=== PATIENT | female | born 1970 | race Asian ===

== ENCOUNTER 2018-10-01 00:41 | Emergency (ER) | payer OTHER ==
--- OUTSIDE RECORDS SUMMARY | 2018-10-01 00:44 | XMS REPORT ---
:1970 Author Organization eClinicalWorks Care Team Providers Name Role Phone Whitaker, Na Provider Role Unavailable Allergies No Known Allergies Problems Problem Type Condition Code Onset Dates Condition Status Problem Acute pain of right knee M25.561 Active Problem Hydronephrosis N13.30 Active Problem Cyst of skin L72.9 Active Problem Microscopic hematuria R31.2 Active Problem Fatigue, unspecified type R53.83 Active Problem Family history of diabetes mellitus Z83.3 Active Problem Blood tests for routine general Z00.00 Active physical examination Problem Osteoarthritis of knee, unspecified M17.10 Active laterality, unspecified osteoarthritis type Problem Low vitamin D level E55.9 Active Problem Cold intolerance R68.89 Active Problem Calculus of kidney and ureter N20.2 Active Medications No Known Medications Results No Known Results Summary Purpose eClinicalWorks Submission
--- OUTSIDE RECORDS SUMMARY | 2018-10-01 00:44 | XMS REPORT ---
:1970 Author Organization [employer]ClinicalWorks Care Team Providers Name Role Phone Daniel Butler Provider Role Unavailable Allergies, Adverse Reactions, Alerts Substance Reaction Event Type N.K.D.A. Info Not Available Non Drug Allergy Problems Problem Type Condition Code Onset Dates Condition Status Problem Cyst of skin L72.9 Active Problem Low vitamin D level E55.9 Active Problem Hydronephrosis N13.30 Active Problem Fatigue, unspecified type R53.83 Active Problem Family history of diabetes Z83.3 Active mellitus Problem Primary osteoarthritis of right M17.11 Active knee Problem Calculus of kidney and ureter N20.2 Active Problem Osteoarthritis of knee, M17.10 Active unspecified laterality, unspecified osteoarthritis type Problem Cold intolerance R68.89 Active Problem Blood tests for routine general Z00.00 Active physical examination Assessment Primary osteoarthritis of right M17.11 Active knee Assessment Tear of medial meniscus of right S83.241A Active knee, current, unspecified tear type, initial encounter Problem Microscopic hematuria R31.2 Active Assessment Acute pain of right knee M25.561 Active Problem Acute pain of right knee M25.561 Active Medications No Known Medications Results No Known Results Summary Purpose eClinicalWorks Submission
--- OUTSIDE RECORDS SUMMARY | 2018-10-01 00:44 | XMS REPORT ---
:1970 Author Organization [employer]Works Care Team Providers Name Role Phone Whitaker, Maryjane Provider Role Unavailable Allergies, Adverse Reactions, Alerts Substance Reaction Event Type N.K.D.A. Info Not Available Non Drug Allergy Problems Problem Type Condition Code Onset Dates Condition Status Problem Acute pain of right knee M25.561 Active Problem Hydronephrosis N13.30 Active Problem Cyst of skin L72.9 Active Problem Fatigue, unspecified type R53.83 Active Problem Family history of diabetes mellitus Z83.3 Active Problem Blood tests for routine general Z00.00 Active physical examination Problem Osteoarthritis of knee, unspecified M17.10 Active laterality, unspecified osteoarthritis type Problem Low vitamin D level E55.9 Active Problem Cold intolerance R68.89 Active Problem Calculus of kidney and ureter N20.2 Active Assessment Osteoarthritis of knee, unspecified M17.10 Active laterality, unspecified osteoarthritis type Assessment Low vitamin D level E55.9 Active Assessment Acute pain of right knee M25.561 Active Problem Microscopic hematuria R31.2 Active Medications Medication Code Code Instructions Start End Status Dosage System Date Date Meclizine HCl [facility] 25436132764 25 MG Orally Active 1 tablet as three times a needed day Cipro [facility] 42477280279 500 MG Orally Active 1 tablet every 12 hrs Pennsaid [facility] 86320478444 2 % Transdermal December 05January Active 2 applications Twice a day 2017, to affected 2018 area Flomax [facility] 35411483145 0.4 MG Orally Active 1 capsule Once a day Ondansetron ND 43049055321 4 MG Orally Active 1 tablet HCl three times a day Zyrtec Allergy [facility] 37968564461 10 MG Orally Active 1 tablet Once a day Results No Known Results Summary Purpose eClinicalWorks Submission
--- OUTSIDE RECORDS SUMMARY | 2018-10-01 00:44 | XMS REPORT ---
:1970 Author Organization eClinicalWorks Care Team Providers Name Role Phone WhitakerMaryjane Provider Role Unavailable Allergies, Adverse Reactions, Alerts [...] of kidney and ureter N20.2 Active Assessment Blood tests for routine general Z00.00 Active physical examination Assessment Fatigue, unspecified type R53.83 Active Assessment Osteoarthritis of knee, unspecified M17.10 Active laterality, unspecified osteoarthritis type Assessment Low vitamin D level E55.9 Active Assessment Cold intolerance R68.89 Active Assessment Acute pain of right knee M25.561 Active Assessment Family history of diabetes mellitus Z83.3 Active Problem Microscopic hematuria R31.2 Active Medications Medication Code Code Instructions Start End Status Dosage System Date Date Pennsaid [facility] 53749816529 2 % Transdermal Active 2 applications Twice a day to affected area Cipro [facility] 85744981020 500 MG Orally Active 1 tablet every 12 hrs Zyrtec Allergy [facility] 00028266598 10 MG Orally Active 1 tablet Once a day Meclizine HCl [facility] 28138891202 25 MG Orally Active 1 tablet as three times a needed day Flomax [facility] 84721412313 0.4 MG Orally Active 1 capsule Once a day Ondansetron [facility] 67798111455 4 MG Orally Active 1 tablet HCl three times a day Results No Known Results Summary Purpose eClinicalWorks Submission
--- OUTSIDE RECORDS SUMMARY | 2018-10-01 00:45 | XMS REPORT ---
:1970 Author Organization eClinicalWorks Care Team Providers Name Role Phone Luke Daniel Provider Role Unavailable Allergies No Known Allergies Problems Problem Type Condition Code Onset Dates Condition Status Problem Cyst of skin L72.9 Active Problem Low vitamin D level E55.9 Active Problem Hydronephrosis N13.30 Active Problem Microscopic hematuria R31.2 Active Problem Acute pain of right knee M25.561 Active Problem Fatigue, unspecified type R53.83 Active Problem Family history of diabetes mellitus Z83.3 Active Problem Primary osteoarthritis of right M17.11 Active knee Problem Calculus of kidney and ureter N20.2 Active Problem Osteoarthritis of knee, unspecified M17.10 Active laterality, unspecified osteoarthritis type Problem Cold intolerance R68.89 Active Problem Blood tests for routine general Z00.00 Active physical examination Medications No Known Medications Results No Known Results Summary Purpose eClinicalWorks Submission
--- OUTSIDE RECORDS SUMMARY | 2018-10-01 00:45 | XMS REPORT ---
[...] routine general Z00.00 Active physical examination Assessment Acute pain of right knee M25.561 Active Problem Microscopic hematuria R31.2 Active Assessment Primary osteoarthritis of right M17.11 Active knee Problem Acute pain of right knee M25.561 Active Medications No Known Medications Results No Known Results Summary Purpose eClinicalWorks Submission
[2018-10-01] MEDS ORDERED: FENTANYL CITR 100 MCG/2 ML ONE (01:16)
[2018-10-01] MEDS ORDERED: PROMETHAZINE 25 MG/ML VIAL ONE (01:23)
[2018-10-01 01:29] LABS: Absolute Lymphocytes (CBC) 2.6 K/uL (0.7-4.9); Absolute Monocytes 0.6 K/uL (0.1-1.3); Absolute Neutrophil 4.9 K/uL (1.8-8.0); Basophils % 0.6 % (0-1.3); Eosinophils % 1.8 % (0-4.4); Hematocrit 39.2 % (36.0-45.0); Lymphocytes % 31.2 % (15.3-44.8); MPV 7.3 fL (7.6-11.3); RBC Red Blood Cell Count 4.65 M/uL (3.86-4.86)
[2018-10-01] MEDS ORDERED: SIMETHICONE 80 MG TAB ONE ×2 (01:34→02:05)
[2018-10-01 01:37] LABS: Urine Blood TRACE (NEG); Urine Glucose NEGATIVE (NEG); Urine Protein NEGATIVE (NEG); Urine Specific Gravity 1.015 (1.005-1.030)
[2018-10-01 01:58] LABS: ALT/SGPT 138 U/L (12-78); AST/SGOT 63 U/L (15-37); Albumin 3.7 g/dL (3.4-5.0); Alkaline Phosphatase 122 U/L (45-117); BUN Blood Urea Nitrogen 13 mg/dL (7-18); Bicarbonate 26 mmol/L (21-32); Bilirubin Direct 0.2 mg/dL (0-0.2); Bilirubin Total 0.7 mg/dL (0.2-1.0); Glucose Level 133 mg/dL (74-106); Lipase 152 U/L (73-393); Protein, Total 7.7 g/dL (6.4-8.2); Sodium Level 140 mmol/L (136-145)
[2018-10-01 02:37] LABS: Urine Amorphous Sediment 1+ /HPF (NONE SEEN); Urine Bacteria <20 /HPF (<20); Urine Culture Reflex Order NOT NEEDED; Urine RBC NONE SEEN /HPF (NONE SEEN)
--- NOTE | 2018-10-01 04:43 | ER ---
Nurse's Notes [facility] Name: Nidhi Solorzano Age: 48 yrs Sex: Female : 1970 Arrival Date: 10/01/2018 Time: 00:46 Bed 6 Private MD: Maryjane Whitaker Diagnosis: Upper abdominal pain, unspecified Presentation: 10/01 00:58 Presenting complaint: Patient states: she has been having intermittent abdominal pain x bb 2 days but tonight the pain got much worse denies vomiting, diarrhea, fever. Transition of care: patient was not received from another setting of care. Onset of symptoms was September 28, 2018. Risk Assessment: Do you want to hurt yourself or someone else? Patient reports no desire to harm self or others. Initial Sepsis Screen: Does the patient meet any 2 criteria? No. Patient's initial sepsis screen is negative. Does the patient have a suspected source of infection? No. Patient's initial sepsis screen is negative. Care prior to arrival: None. 00:58 Method Of Arrival: Ambulatory bb 00:58 Acuity: ESTEFANIA 3 bb Triage Assessment: 01:24 General: Appears uncomfortable, Behavior is calm, cooperative. Pain: Complains of pain ak1 in abdomen. EENT: No signs and/or symptoms were reported regarding the EENT system. Neuro: No deficits noted. Cardiovascular: No deficits noted. Respiratory: No deficits noted. GI: Abdomen is flat, Bowel sounds present X 4 quads. : No signs and/or symptoms were reported regarding the genitourinary system. Derm: No signs and/or symptoms reported regarding the dermatologic system. Musculoskeletal: No signs and/or symptoms reported regarding the musculoskeletal system. 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 - Social history:: Smoking status: Patient/guardian denies using tobacco, Patient/guardian denies using alcohol. - Ebola Screening: : No symptoms or risks identified at this time. Screenin:22 Abuse screen: Denies threats or abuse. Denies injuries from another. Nutritional ak1 screening: No deficits noted. Tuberculosis screening: No symptoms or risk factors identified. Fall Risk None identified. Assessment: 01:28 GI: Abd is soft Abdomen is tender to palpation X 4 quads. ak1 01:50 Reassessment: pt finished oral contrast, Valerie with CT notified. ak1 Vital Signs: 01:00 BP 139 / 87; Pulse 119; Resp 18 S; Temp 98.4(O); Pulse Ox 98% on R/A; Weight 52.16 kg bb (R); Height 4 ft. 11 in. (149.86 cm) (R); Pain 10/10; 02:11 BP 142 / 87; Pulse 114; Resp 18; Pulse Ox 100% on R/A; ak1 03:12 BP 136 / 91; Pulse 109; Resp 18; Pulse Ox 100% on R/A; ak1 01:00 Body Mass Index 23.23 (52.16 kg, 149.86 cm) bb ED Course: 00:46 Patient arrived in ED. es 00:46 Maryjane Whitaker MD is Private Physician. es 00:51 Gasper Cardenas MD is Attending Physician. rn 00:54 Chelsea Mina FNP-C is PHCP. snw 00:59 Jessica Kumar, RN is Primary Nurse. ak1 01:00 Triage completed. bb 01:00 Arm band placed on Patient placed in an exam room, on a stretcher, on pulse oximetry. bb Family accompanied patient. 01:12 Inserted saline lock: 20 gauge in right forearm, using aseptic technique. Blood ak1 collected. 01:22 Patient has correct armband on for positive identification. Bed in low position. Call ak1 light in reach. Side rails up X 1. Adult w/ patient. Pulse ox on. NIBP on. 03:[address] via wheelchair. kw1 03:38 CT Abd/Pelvis - W/Contrast In Process Unspecified. EDMS 03:38 CT completed. Patient tolerated procedure well. Patient moved back from CT. kw1 04:43 Blu Spencer MD is Referral Physician. rn 05:03 IV discontinued, intact, bleeding controlled, No redness/swelling at site. Pressure ak1 dressing applied. 05:03 No provider procedures requiring assistance completed. ak1 Administered Medications: 01:08 CANCELLED (other intervention used): Simethicone 120 mg PO once snw 01:17 Drug: NS 0.9% 1000 ml Route: IV; Rate: 1 bolus; Site: right forearm; ea 01:56 Follow up: IV Status: Completed infusion; IV Intake: 1000ml ak1 01:17 Drug: Phenergan 12.5 mg Route: IVP; Site: right forearm; ea 01:33 Follow up: Response: No adverse reaction ak1 01:21 Drug: fentaNYL (PF) 25 mcg Route: IVP; Site: right forearm; ak1 01:33 Follow up: Response: No adverse reaction ak1 01:53 Drug: Simethicone 80 mg Route: PO; ak1 02:10 Follow up: Response: No adverse reaction ak1 02:10 Drug: Simethicone 80 mg Route: PO; ak1 02:11 Follow up: Response: No adverse reaction ak1 05:02 Drug: GI Cocktail without - (Maalox Suspension 30 ml, Lidocaine Liquid 2 % 15 ak1 ml) Route: PO; 05:02 Follow up: Response: No adverse reaction ak1 Intake: 01:56 IV: 1000ml; Total: 1000ml. ak1 Outcome: 04:43 Discharge ordered by . rn 05:04 Discharged to home ambulatory, with family. ak1 05:04 Condition: good 05:04 Discharge instructions given to patient, family, Instructed on discharge instructions, follow up and referral plans. no drinking with medication, no driving heavy equipment, medication usage, Demonstrated understanding of instructions, follow-up care, medications, Prescriptions given X 2. 05:04 Patient left the ED. ak1 Signatures: Dispatcher [employer] EDChelsea Serna, SUPERVISOR VACUUM METALIZING-C SUPERVISOR VACUUM METALIZING-Csnw Za Felder Brenda RN RN Gasper Rios MD MD rn Krenek, Amber, RN RN ak1 Latisha Sainz RN RN ea Wilhelm, Kimberly kw
--- NOTE | 2018-10-01 04:44 | EDPHYS ---
Physician Documentation [facility] Name: Nidhi Solorzano Age: 48 yrs Sex: Female : 1970 Arrival Date: 10/01/2018 Time: 00:46 Bed 6 Private MD: Maryjane Whitaker ED Physician Gasper Cardenas HPI: 10/01 00:58 This 48 yrs old Female presents to ER via Unassigned with complaints of Abdominal snw Pain. 00:58 The patient presents with abdominal pain that is diffuse, abdominal distention that is snw diffuse. Onset: The symptoms/episode began/occurred gradually, 4 day(s) ago, and became worse today, and became persistent. The symptoms do not radiate. The symptoms are described as shooting, steady. Modifying factors: The symptoms are alleviated by nothing, the symptoms are aggravated by lying down. Severity of pain: At its worst the pain was moderate severe. The patient has not experienced similar symptoms in the past. The patient has not recently seen a physician. 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 - Social history:: Smoking status: Patient/guardian denies using tobacco, Patient/guardian denies using alcohol. - Ebola Screening: : No symptoms or risks identified at this time. ROS: 00:55 Constitutional: Negative for fever, chills, and weight loss, Eyes: Negative for injury, snw pain, redness, and discharge, ENT: Negative for injury, pain, and discharge, Neck: Negative for injury, pain, and swelling, Cardiovascular: Negative for chest pain, palpitations, and edema. 00:55 Back: Negative for injury and pain, : Negative for injury, bleeding, discharge, and swelling, MS/Extremity: Negative for injury and deformity, Skin: Negative for injury, rash, and discoloration, Neuro: Negative for headache, weakness, numbness, tingling, and seizure. 00:55 Respiratory: Positive for shortness of breath, at rest. 00:55 Abdomen/GI: Positive for abdominal pain, abdominal cramps, abdominal distension, anorexia. Exam: 00:54 Back: No spinal tenderness. No costovertebral tenderness. Full range of motion. snw Skin: Warm, dry with normal turgor. Normal color with no rashes, no lesions, and no evidence of cellulitis. MS/ Extremity: Pulses equal, no cyanosis. Neurovascular intact. Full, normal range of motion. Neuro: Awake and alert, GCS 15, oriented to person, place, time, and situation. Cranial nerves II-XII grossly intact. Motor strength 5/5 in all extremities. Sensory grossly intact. Cerebellar exam normal. Normal gait. 00:54 Head/Face: Normocephalic, atraumatic. Eyes: Pupils equal round and reactive to light, extra-ocular motions intact. Lids and lashes normal. Conjunctiva and sclera are non-icteric and not injected. Cornea within normal limits. Periorbital areas with no swelling, redness, or edema. ENT: Nares patent. No nasal discharge, no septal abnormalities noted. Tympanic membranes are normal and external auditory canals are clear. Oropharynx with no redness, swelling, or masses, exudates, or evidence of obstruction, uvula midline. Mucous membranes moist. Neck: Trachea midline, no thyromegaly or masses palpated, and no cervical lymphadenopathy. Supple, full range of motion without nuchal rigidity, or vertebral point tenderness. No Meningismus. Chest/axilla: Normal chest wall appearance and motion. Nontender with no deformity. No lesions are appreciated. Cardiovascular: Tachycardic rate and rhythm with a normal S1 and S2. No gallops, murmurs, or rubs. Normal PMI, no JVD. No pulse deficits. Respiratory: Lungs have equal breath sounds bilaterally, clear to auscultation and percussion. No rales, rhonchi or wheezes noted. No increased work of breathing, no retractions or nasal flaring. 00:54 Constitutional: The patient appears alert, anxious. 00:54 Abdomen/GI: Inspection: distension, Bowel sounds: normal, Palpation: mild abdominal tenderness, in all quadrants. Vital Signs: 01:00 BP 139 / 87; Pulse 119; Resp 18 S; Temp 98.4(O); Pulse Ox 98% on R/A; Weight 52.16 kg bb (R); Height 4 ft. 11 in. (149.86 cm) (R); Pain 10/10; 02:11 BP 142 / 87; Pulse 114; Resp 18; Pulse Ox 100% on R/A; ak1 03:12 BP 136 / 91; Pulse 109; Resp 18; Pulse Ox 100% on R/A; ak1 01:00 Body Mass Index 23.23 (52.16 kg, 149.86 cm) bb MDM: 00:51 Patient medically screened. rn 10/01 00:58 Order name: Basic Metabolic Panel; Complete Time: 02:00 snw 10/01 00:58 Order name: CBC with Diff; Complete Time: 01:39 snw 10/01 00:58 Order name: Hepatic Function; Complete Time: 02:00 snw 10/01 00:58 Order name: Lipase; Complete Time: 02:00 snw 10/01 00:58 Order name: DD; Complete Time: 01:47 snw 10/01 01:27 Order name: Urine Culture snw 10/01 00:58 Order name: CT Abd/Pelvis - W/Contrast; Complete Time: 15:46 snw 10/01 01:27 Order name: Urine Microscopic Only; Complete Time: 02:46 snw 10/01 01:29 Order name: Urine Dipstick--Ancillary (enter results); Complete Time: 01:39 ar5 10/01 00:58 Order name: IV Saline Lock; Complete Time: 01:12 snw 10/01 00:58 Order name: Labs collected and sent; Complete Time: 01:12 snw 10/01 00:58 Order name: NPO; Complete Time: 01:12 snw 10/01 01:27 Order name: Urine Dipstick-Ancillary (obtain specimen); Complete Time: 01:30 snw Administered Medications: 01:08 CANCELLED (other intervention used): Simethicone 120 mg PO once snw 01:17 Drug: NS 0.9% 1000 ml Route: IV; Rate: 1 bolus; Site: right forearm; ea 01:56 Follow up: IV Status: Completed infusion; IV Intake: 1000ml ak1 01:17 Drug: Phenergan 12.5 mg Route: IVP; Site: right forearm; ea 01:33 Follow up: Response: No adverse reaction ak1 01:21 Drug: fentaNYL (PF) 25 mcg Route: IVP; Site: right forearm; ak1 01:33 Follow up: Response: No adverse reaction ak1 01:53 Drug: Simethicone 80 mg Route: PO; ak1 02:10 Follow up: Response: No adverse reaction ak1 02:10 Drug: Simethicone 80 mg Route: PO; ak1 02:11 Follow up: Response: No adverse reaction ak1 05:02 Drug: GI Cocktail without - (Maalox Suspension 30 ml, Lidocaine Liquid 2 % 15 ak1 ml) Route: PO; 05:02 Follow up: Response: No adverse reaction ak1 Disposition: 04:42 Co-signature as Attending Physician, Gasper Cardenas MD. rn Disposition: 10/01/18 04:43 Discharged to Home. Impression: Upper abdominal pain, unspecified. - Condition is Stable. - Discharge Instructions: Abdominal Pain, Adult. - Prescriptions for Tylenol- Codeine #3 300-30 mg Oral Tablet - take 1 tablet by ORAL route every 6 hours As needed; 20 tablet. Zantac 300 mg Oral Tablet - take 1 tablet by ORAL route At bedtime; 30 tablet. - Medication Reconciliation Form, Thank You Letter, Antibiotic Education, Prescription Opioid Use form. - Follow up: Blu Spencer MD; When: As needed; Reason: Recheck today's complaints, Re-evaluation by your physician. - Problem is new. - Symptoms have improved. Signatures: Dispatcher [employer] EDMS Chelsea Mina, REAL-C COAL DRIER OPERATOR-Csnw Heidi Jaffe RN RN bb Nieto, Roman, MD MD rn Krenek, Amber, RN RN ak1 Latisha Sainz RN RN ea Corrections: (The following items were deleted from the chart) 00:59 00:54 Head/Face: Normocephalic, atraumatic. Eyes: Pupils equal round and reactive to snw light, extra-ocular motions intact. Lids and lashes normal. Conjunctiva and sclera are non-icteric and not injected. Cornea within normal limits. Periorbital areas with no swelling, redness, or edema. ENT: Nares patent. No nasal discharge, no septal abnormalities noted. Tympanic membranes are normal and external auditory canals are clear. Oropharynx with no redness, swelling, or masses, exudates, or evidence of obstruction, uvula midline. Mucous membranes moist. Neck: Trachea midline, no thyromegaly or masses palpated, and no cervical lymphadenopathy. Supple, full range of motion without nuchal rigidity, or vertebral point tenderness. No Meningismus. Chest/axilla: Normal chest wall appearance and motion. Nontender with no deformity. No lesions are appreciated. Cardiovascular: Regular rate and rhythm with a normal S1 and S2. No gallops, murmurs, or rubs. Normal PMI, no JVD. No pulse deficits. Respiratory: Lungs have equal breath sounds bilaterally, clear to auscultation and percussion. No rales, rhonchi or wheezes noted. No increased work of breathing, no retractions or nasal flaring. snw 01:08 00:58 Simethicone 120 mg PO once ordered. snw snw :08 01:08 Simethicone 120 mg PO once ordered. snw snw 05:04 04:43 10/01/2018 04:43 Discharged to Home. Impression: Upper abdominal pain, ak1 unspecified. Condition is Stable. Forms are Medication Reconciliation Form, Thank You Letter, Antibiotic Education, Prescription Opioid Use. Follow up: Blu pSencer; When: As needed; Reason: Recheck today's complaints, Re-evaluation by your physician. Problem is new. Symptoms have improved. rn
[2018-10-01] MEDS ORDERED: LIDOCAINE VISCOUS 2% SOLN 15 ML UDC ONE (05:05)
[2018-10-01] MEDS ORDERED: MAGNE/ALUM HYDROXD 30 ML UCUP ONE (05:05)
--- NOTE | 2018-10-01 12:06 | RAD REPORT ---
EXAM DESCRIPTION: CT abdomen pelvis with IV contrast CLINICAL HISTORY: 48-year-old female with intermittent abdominal pain x2 days without vomiting, diar joseline or fever TECHNIQUE: Axial CT imaging of the abdomen and pelvis was performed following the administration of intravenous contrast.. Sagittal and coronal reconstructed images were then performed. The CT stud y is performed according to ALARA (as low as reasonably achievable) or ALARA/IMAGE GENTLY, with autom atic adjustment of mA and/or kV according to patient size. Performed on: 10/01/2018 at 3:30 AM. COMPARISON: CT abdomen and pelvis performed on 07/16/2016 FINDINGS: Lung bases: The lung bases are clear. There are bilateral breast prostheses. Liver: The liver is normal in size and configuration. There is a stable 1.2 cm cyst in the posterior right hepatic lobe. Liver attenuation is otherwise within normal limits. The hepatic and portal veins are patent. Spleen: The spleen is normal is size, configuration and attenuation. Gallbladder and bile duct: The gallbladder is well distended and unremarkable. There is no biliary ductal dilatation. Pancreas: The pancreas is grossly normal in size and configuration. Adrenal Glands: The adrenal glands are normal in size and configuration. Kidneys: The kidneys are normal in size and configuration. There is no evidence of hydronephrosis. Th ere are punctate bilateral nonobstructing renal calculi. No definite solid or cystic renal mass lesio ns are identified. Stomach: The stomach is grossly normal. There is no definite hiatal hernia. Bowel: The bowel gas pattern is non specific and non obstructive. Appendix: The appendix is normal. Free air: There is no evidence of free air. Free fluid: There is no evidence of free fluid. Vasculature: The aorta is normal in caliber and contour. The inferior vena cava is grossly unremarkab le. Lymphadenopathy: No pathologic lymphadenopathy is identified. Bladder: The bladder is incompletely distended and smooth in contour. Reproductive: The uterus is retroverted and is otherwise unremarkable. Bones: No acute osseous abnormalities are identified. Soft tissues: No focal soft tissue abnormalities are identified. IMPRESSION: 1. No evidence of acute intra-abdominal or intrapelvic pathology. 2. Punctate bilateral nonobstructing renal calculi. 3. Stable small right hepatic lobe cyst. 4. Retroverted uterus. Electronically signed by: Brenda García DO 10/01/2018 4:25 AM SOCIAL MEDIA DEVELOPER Due to temporary technical issues with the PACS/Fluency reporting system, reports are being signed by the in house radiologist as a courtesy to ensure prompt reporting. The interpreting radiologist is f ully responsible for the content of the report.
== END 2018-10-01 05:04 | disposition home or self-care (01) ==
LOC: ER 00:41
DX: R10.10 Upper abdominal pain, unspecified (principal); Z98.82 Breast implant status
CPT/HCPCS: 36415; 74177; 80048; 80076; 81003; 81015; 83690; 85025; 85379; 87086; 87088; 96361; 96374; 96375; 99284; J2550; J3010; Q9967

== ENCOUNTER 2019-01-21 11:10 | Emergency (ER) | payer OTHER ==
--- OUTSIDE RECORDS SUMMARY | 2019-01-21 11:12 | XMS REPORT ---
[...] End Status Dosage System Date Date Pennsaid [facility] 13671391434 2 % Transdermal Active 2 applications Twice a day to affected area Cipro [facility] 00930868879 500 MG Orally Active 1 tablet every [address] [facility] 62698741149 10 MG Orally Active 1 tablet Once a day Meclizine HCl [facility] 87008216372 25 MG Orally Active 1 tablet as three times a needed day Flomax [facility] 08309984427 0.4 MG Orally Active 1 capsule Once a day Ondansetron [facility] 50220372137 4 MG Orally Active 1 tablet HCl three times a day Results No Known Results Summary Purpose eClinicalWorks Submission
--- OUTSIDE RECORDS SUMMARY | 2019-01-21 11:12 | XMS REPORT ---
:1970 [facility] On license of [facility] [address] Lovell [address] [place] [id number] Care Team Providers Name Role Phone Unavailable Unavailable Unavailable Problems This patient has no known problems. Allergies, Adverse Reactions, Alerts This patient has no known allergies or adverse reactions. Medications This patient has no known medications.
--- OUTSIDE RECORDS SUMMARY | 2019-01-21 11:12 | XMS REPORT ---
[...] Status Dosage System Date Date Meclizine HCl [facility] 98141609168 25 MG Orally Active 1 tablet as three times a needed day Cipro [facility] 05909838329 500 MG Orally Active 1 tablet every 12 hrs Pennsaid [facility] 00269619043 2 % Transdermal December 05January Active 2 applications Twice a day 2017, to affected 2018 area Flomax [facility] 50949841752 0.4 MG Orally Active 1 capsule Once a day Ondansetron ND 58699865624 4 MG Orally Active 1 tablet HCl three times a day Zyrtec Allergy [facility] 98070456814 10 MG Orally Active 1 tablet Once a day Results No Known Results Summary Purpose eClinicalWorks Submission
--- OUTSIDE RECORDS SUMMARY | 2019-01-21 11:13 | XMS REPORT ---
:1970 Author Organization eClinicalWorks Care Team Providers Name Role Phone Whitaker, Na Provider Role Unavailable Allergies No Known Allergies Problems Problem Type Condition Code Onset Dates Condition Status Problem Blood tests for routine general Z00.00 Active physical examination Problem Primary osteoarthritis of right M17.11 Active knee Problem Fatigue, unspecified type R53.83 Active Problem Carpal tunnel syndrome of right G56.01 Active wrist Problem Hyperthyroidism E05.90 Active Problem Carpal tunnel syndrome of left G56.02 Active wrist Problem Renal calculus N20.0 Active Problem Gastroesophageal reflux disease K21.9 Active without esophagitis Problem Thyroiditis E06.9 Active Problem Chronic fatigue R53.82 Active Problem Low vitamin D level E55.9 Active Problem Microscopic hematuria R31.2 Active Problem Hydronephrosis N13.30 Active Problem Osteoarthritis of knee, unspecified M17.10 Active laterality, unspecified osteoarthritis type Problem Calculus of kidney and ureter N20.2 Active Problem Acute pain of right knee M25.561 Active Problem Cold intolerance R68.89 Active Problem Cyst of skin L72.9 Active Problem Family history of diabetes mellitus Z83.3 Active Medications No Known Medications Results No Known Results Summary Purpose eClinicalWorks Submission
--- OUTSIDE RECORDS SUMMARY | 2019-01-21 11:13 | XMS REPORT ---
:1970 Author Organization eClinicalWorks Care Team Providers Name Role Phone Whitaker, Maryjane Provider Role Unavailable Allergies, Adverse Reactions, Alerts Substance Reaction Event Type N.K.D.A. Info Not Available Non Drug Allergy Problems Problem Type Condition Code Onset Dates Condition Status Problem Hydronephrosis N13.30 Active Problem Family history of diabetes mellitus Z83.3 Active Problem Low vitamin D level E55.9 Active Problem Chronic fatigue R53.82 Active Assessment Epigastric abdominal pain R10.13 Active Problem Gastroesophageal reflux disease K21.9 Active without esophagitis Assessment Gastroesophageal reflux disease K21.9 Active without esophagitis Assessment Chronic fatigue R53.82 Active Problem Renal calculus N20.0 Active Problem Cold intolerance R68.89 Active Problem Blood tests for routine general Z00.00 Active physical examination Problem Primary osteoarthritis of right M17.11 Active knee Problem Fatigue, unspecified type R53.83 Active Assessment Chest pain, unspecified type R07.9 Active Assessment Tachycardia with heart rate 121-140 R00.0 Active beats per minute Assessment Dyspnea, unspecified type R06.00 Active Assessment Renal calculus N20.0 Active Problem Calculus of kidney and ureter N20.2 Active Problem Microscopic hematuria R31.2 Active Assessment Low TSH level R79.89 Active Problem Acute pain of right knee M25.561 Active Assessment Elevated liver enzymes R74.8 Active Problem Osteoarthritis of knee, unspecified M17.10 Active laterality, unspecified osteoarthritis type Problem Cyst of skin L72.9 Active Medications No Known Medications Results Name Result Date Reference Range Unit Abnormality Flag TSH Thyroid Stimulating Hormone ----Thyroid Stimulating <0.005 20181002 0.360-3.740 [iU]/L L Hormone Summary Purpose eClinicalWorks Submission
--- OUTSIDE RECORDS SUMMARY | 2019-01-21 11:13 | XMS REPORT ---
:1970 Author Organization eClinicalWorks Care Team Providers Name Role Phone Whitaker, Na Provider Role Unavailable Allergies No Known Allergies Problems Problem Type Condition Code Onset Dates Condition Status Problem Hydronephrosis N13.30 Active Problem Family history of diabetes mellitus Z83.3 Active Problem Low vitamin D level E55.9 Active Problem Chronic fatigue R53.82 Active Problem Gastroesophageal reflux disease K21.9 Active without esophagitis Problem Renal calculus N20.0 Active Problem Cold intolerance R68.89 Active Problem Blood tests for routine general Z00.00 Active physical examination Problem Primary osteoarthritis of right M17.11 Active knee Problem Fatigue, unspecified type R53.83 Active Problem Calculus of kidney and ureter N20.2 Active Problem Microscopic hematuria R31.2 Active Problem Acute pain of right knee M25.561 Active Problem Osteoarthritis of knee, unspecified M17.10 Active laterality, unspecified osteoarthritis type Problem Cyst of skin L72.9 Active Medications No Known Medications Results No Known Results Summary Purpose eClinicalWorks Submission
--- OUTSIDE RECORDS SUMMARY | 2019-01-21 11:13 | XMS REPORT ---
[...] Problem Fatigue, unspecified type R53.83 Active Assessment Low TSH level R79.89 Active Problem Calculus of kidney and ureter N20.2 Active Problem Microscopic hematuria R31.2 Active Problem Acute pain of right knee M25.561 Active Problem Osteoarthritis of knee, unspecified M17.10 Active laterality, unspecified osteoarthritis type Problem Cyst of skin L72.9 Active Medications No Known Medications Results No Known Results Summary Purpose eClinicalWorks Submission
--- OUTSIDE RECORDS SUMMARY | 2019-01-21 11:13 | XMS REPORT ---
:1970 Author Organization eClinicalWorks Care Team Providers Name Role Phone Whitaker, Maryjane Provider Role Unavailable Allergies, Adverse Reactions, Alerts Substance Reaction Event Type N.K.D.A. Info Not Available Non Drug Allergy Problems Problem Type Condition Code Onset Dates Condition Status Assessment Other specified bacterial agents as B96.89 Active the cause of diseases classified elsewhere Assessment Low TSH level R79.89 Active Problem Osteoarthritis of knee, unspecified M17.10 Active laterality, unspecified osteoarthritis type Assessment Chronic fatigue R53.82 Active Problem Calculus of kidney and ureter N20.2 Active Assessment Gastroesophageal reflux disease K21.9 Active without esophagitis Problem Cold intolerance R68.89 Active Problem Blood tests for routine general Z00.00 Active physical examination Problem Family history of diabetes mellitus Z83.3 Active Problem Thyroiditis E06.9 Active Problem Gastroesophageal reflux disease K21.9 Active without esophagitis Assessment Hyperthyroidism E05.90 Active Assessment Elevated liver enzymes R74.8 Active Problem Hyperthyroidism E05.90 Active Assessment Epigastric abdominal pain R10.13 Active Problem Primary osteoarthritis of right M17.11 Active knee Problem Fatigue, unspecified type R53.83 Active Problem Renal calculus N20.0 Active Problem Chronic fatigue R53.82 Active Problem Hydronephrosis N13.30 Active Assessment Thyroiditis E06.9 Active Assessment Acute sinusitis, unspecified J01.90 Active Problem Acute pain of right knee M25.561 Active Problem Cyst of skin L72.9 Active Problem Low vitamin D level E55.9 Active Problem Microscopic hematuria R31.2 Active Medications Medication Code Code Instructions Start End Date Status Dosage System Date Methimazole ND 32298327868 10 MG Orally Active 1 tablet twice a day with food Propranolol HCl ND 73911241696 20 MG Orally Active 1 tablet twice a day on an empty stomach Propranolol HCl ND 56879755713 20 MG Orally October Active 1 tablet Once a day 2018 on an empty stomach Methimazole ND 51360080143 10 MG Orally October Active 1 tablet Once a day 2018 with food Amoxicillin ND 30984745107 500 MG Orally October Active 1 capsule every 8 hrs 2018 Results Name Result Date Reference Range Unit Abnormality Flag COMPREHENSIVE METABOLIC PANEL(CMP) ----ALBUMIN/GLOBULIN 1.4 [id number] 1.0-2.5 (calc) N RATIO ----GLOBULIN 3.1 [id number] 1.9-3.7 g/dL (calc) N ----ALKALINE 149 02938183 33-115 U/L H PHOSPHATASE ----BILIRUBIN, TOTAL 0.8 41830076 0.2-1.2 mg/dL N ----CHLORIDE 102 92017021 98-110 mmol/L N ----ALT 26 20181106 6-29 U/L N ----POTASSIUM 4.5 60842598 3.5-5.3 mmol/L N ----AST 19 20181106 10-35 U/L N ----SODIUM 139 62223478 135-146 mmol/L N ----BUN/CREATININE 28 48004237 6-22 (calc) H RATIO ----eGFR 139 [id number] > OR=60 mL/min/1.73m2 N ALBANIAN ----CALCIUM 10.2 50199810 8.6-10.2 mg/dL N ----CARBON DIOXIDE 29 20181106 20-32 mmol/L N ----ALBUMIN 4.4 54485328 3.6-5.1 g/dL N ----PROTEIN, TOTAL 7.5 30303417 6.1-8.1 g/dL N ----GLUCOSE 89 59198835 65-139 mg/dL N ----UREA NITROGEN (BUN) 12 20181106 7-25 mg/dL N ----CREATININE 0.43 99611653 0.50-1.10 mg/dL L ----eGFR NON-AFR. 120 [id number] > OR=60 mL/min/1.73m2 N ALBANIAN Summary Purpose eClinicalWorks Submission
--- OUTSIDE RECORDS SUMMARY | 2019-01-21 11:13 | XMS REPORT ---
:1970 Author Organization eClinicalWorks Care Team Providers Name Role Phone Daniel Butler Provider Role Unavailable Allergies No Known Allergies Problems Problem Type Condition Code Onset Dates Condition Status Problem Cold intolerance R68.89 Active Problem Blood tests for routine general Z00.00 Active physical examination Problem Family history of diabetes mellitus Z83.3 Active Problem Thyroiditis E06.9 Active Problem Gastroesophageal reflux disease K21.9 Active without esophagitis Problem Hyperthyroidism E05.90 Active Problem Primary osteoarthritis of right M17.11 Active knee Problem Fatigue, unspecified type R53.83 Active Problem Renal calculus N20.0 Active Problem Chronic fatigue R53.82 Active Problem Hydronephrosis N13.30 Active Problem Acute pain of right knee M25.561 Active Problem Cyst of skin L72.9 Active Problem Low vitamin D level E55.9 Active Problem Osteoarthritis of knee, unspecified M17.10 Active laterality, unspecified osteoarthritis type Problem Microscopic hematuria R31.2 Active Problem Calculus of kidney and ureter N20.2 Active Medications No Known Medications Results No Known Results Summary Purpose eClinicalWorks Submission
--- OUTSIDE RECORDS SUMMARY | 2019-01-21 11:13 | XMS REPORT ---
[...] Problem Cyst of skin L72.9 Active Medications Medication Code Code Instructions Start End Date Status Dosage System Date Methimazole [facility] 57642-05 10 MG Orally Active 1 tablet 10- twice a day with food Propranolol HCl [facility] 41326-82 20 MG Orally Active 1 tablet on 60-01 twice a day an empty stomach Results No Known Results Summary Purpose eClinicalWorks Submission
--- OUTSIDE RECORDS SUMMARY | 2019-01-21 11:13 | XMS REPORT ---
[...] tunnel syndrome of right G56.01 Active wrist Assessment Pain in joints of left hand M25.542 Active Problem Hyperthyroidism E05.90 Active Assessment Pain in joint of right hand M25.541 Active Assessment Carpal tunnel syndrome of right G56.01 Active wrist Problem Carpal tunnel syndrome of left G56.02 [...] M25.561 Active Problem Cold intolerance R68.89 Active Assessment Carpal tunnel syndrome of left G56.02 Active wrist Problem Cyst of skin L72.9 Active Problem Family history of diabetes mellitus Z83.3 Active Medications Medication Code Code Instructions Start End Date Status Dosage System Date Propranolol HCl [facility] 87199777607 20 MG Oral Active TK [address] PO [address] [facility] 75780662740 10 MG Oral Active TK 1 T PO BID Results No Known Results Summary Purpose eClinicalWorks Submission
[2019-01-21] MEDS ORDERED: ONDANSETRON 4 MG/2 ML VIAL ONE ×2 (12:10→17:27)
[2019-01-21] MEDS ORDERED: FENTANYL CITR 100 MCG/2 ML ONE (12:10)
[2019-01-21] MEDS ORDERED: NA CHLORIDE 0.9% 1,000 ML ONE ×2 (12:10→15:34)
[2019-01-21 12:11] LABS: Basophils % 0.1 % (0-1.3); Eosinophils % 0.1 % (0-4.4); Hematocrit 42.5 % (36.0-45.0); Lymphocytes % 8.1 % (15.3-44.8); MPV 7.4 fL (7.6-11.3); Monocytes % 3.1 % (3.3-12.3); RBC Red Blood Cell Count 4.77 M/uL (3.86-4.86)
[2019-01-21] MEDS ORDERED: FAMOTIDINE 20 MG/2 ML VIAL IV ONE (12:13)
--- NOTE | 2019-01-21 12:27 | RAD REPORT ---
EXAM DESCRIPTION: US - Abdomen Exam Limited - 01/21/2019 12:17 pm CLINICAL HISTORY: EPIGASTRIC PAIN COMPARISON: <Comparisons> FINDINGS: The gallbladder demonstrates no gallstones. No pericholecystic fluid or gallbladder wall t hickening. The common bile duct is normal measuring 4 mm. The liver demonstrates no findings of intrahepatic biliary dilatation. IMPRESSION: Unremarkable examination.
[2019-01-21 12:29] LABS: ALT/SGPT 18 U/L (12-78); AST/SGOT 16 U/L (15-37); Albumin 4.6 g/dL (3.4-5.0); Alkaline Phosphatase 215 U/L (45-117); BUN Blood Urea Nitrogen 14 mg/dL (7-18); Bicarbonate 27 mmol/L (21-32); Bilirubin Direct 0.2 mg/dL (0-0.2); Bilirubin Total 0.7 mg/dL (0.2-1.0); Glucose Level 125 mg/dL (74-106); Lipase 146 U/L (73-393); Potassium 3.7 mmol/L (3.5-5.1); Protein, Total 8.8 g/dL (6.4-8.2); Sodium Level 138 mmol/L (136-145)
[2019-01-21 13:29] LABS: Blood Morphology Comment NOT SEEN (NOT SEEN); Platelet Estimate ADEQ; Urine White Blood Cell Casts OK
[2019-01-21 13:43] LABS: Urine Blood NEGATIVE (NEG); Urine Glucose NEGATIVE (NEG); Urine Protein NEGATIVE (NEG); Urine Specific Gravity 1.015 (1.005-1.030); Urine pH 5.5 (5.0-7.0)
--- NOTE | 2019-01-21 14:40 | RAD REPORT ---
EXAM DESCRIPTION: CT - Abdomen Pelvis W Contrast - 01/21/2019 2:16 pm CLINICAL HISTORY: Abdominal pain. COMPARISON: September 2018 TECHNIQUE: Computed axial tomography of the abdomen and pelvis was obtained. 100 cc Isovue-300 is ad ministered intravenously. Oral contrast was given. All CT scans are performed using dose optimization technique as appropriate and may include automated exposure control or mA/KV adjustment according to patient size. FINDINGS: The liver, spleen, pancreas, adrenals and kidneys appear unremarkable. The appendix is normal caliber. There is no evidence of diverticulitis The wall of multiple loops of ileum is thickened. IMPRESSION: Thickening of the wall of multiple loops of ileum may indicate inflammation, infection or ischemia
[2019-01-21] MEDS ORDERED: METRONIDAZOLE 500mg IVPB 500 MG/100 ML BAG IV ONE (15:34)
[2019-01-21] MEDS ORDERED: CIPROFLOXACIN 400mg IV 400 MG/200 ML BAG IV ONE (15:34)
--- NOTE | 2019-01-21 17:00 | ER ---
Nurse's Notes [facility] Name: Nidhi Solorzano Age: 48 yrs Sex: Female : 1970 Arrival Date: 01/21/2019 Time: 11:14 Bed 17 Private MD: Maryjane Whitaker Diagnosis: Upper abdominal pain, unspecified-inflammation of ileum Presentation: 01/21 11:17 Presenting complaint: states: "SHE HAVE A HARD STOMACH". Transition of care: bp patient was not received from another setting of care. Onset of symptoms was January 21, 2019. Risk Assessment: Do you want to hurt yourself or someone else? Patient reports no desire to harm self or others. Initial Sepsis Screen: Does the patient meet any 2 criteria? No. Patient's initial sepsis screen is negative. Does the patient have a suspected source of infection? No. Patient's initial sepsis screen is negative. Care prior to arrival: None. 11:17 Method Of Arrival: Wheelchair bp 11:17 Acuity: ESTEFANIA 3 bp Triage Assessment: 11:17 General: Appears in no apparent distress. uncomfortable, Behavior is cooperative, bp appropriate for age, anxious. Pain: Complains of pain in abdomen. GI: Reports nausea, vomiting. 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 - Social history:: Smoking status: unknown. - Ebola Screening: : No symptoms or risks identified at this time. Screenin:20 Abuse screen: Denies threats or abuse. Denies injuries from another. Nutritional hj screening: No deficits noted. Tuberculosis screening: No symptoms or risk factors identified. Fall Risk None identified. Assessment: 11:20 GI: Bowel sounds Abdomen is tender to palpation Abd is rigid. hj 11:20 General: Appears in no apparent distress. uncomfortable, slender, Behavior is calm, hj cooperative, appropriate for age. Pain: Complains of pain in abdomen. Neuro: Level of Consciousness is awake, alert, obeys commands, Oriented to person, place, time, situation, Appropriate for age. Cardiovascular: Capillary refill < 3 seconds Patient's skin is warm and dry. Respiratory: Airway is patent Respiratory effort is even, unlabored, Respiratory pattern is regular, symmetrical. : No signs and/or symptoms were reported regarding the genitourinary system. EENT: No signs and/or symptoms were reported regarding the EENT system. Derm: No signs and/or symptoms reported regarding the dermatologic system. Musculoskeletal: No signs and/or symptoms reported regarding the musculoskeletal system. 12:08 Reassessment: wheeled to US;. hj 12:24 Reassessment: back from US;. hj 13:23 Reassessment: Patient and/or family updated on plan of care and expected duration. Pain hj level reassessed. Patient is alert, oriented x 3, equal unlabored respirations, skin warm/dry/pink. awaiting results and POC;. 17:12 Reassessment: pt vomited x 1; aware; zofran IV given; to hold D/C;. hj 17:32 Reassessment: able to tolerate PO challenge;. hj Vital Signs: 11:18 BP 115 / 69; Pulse 88; Resp 16; Temp 97.4; Pulse Ox 99% ; Weight 49.9 kg; Height 4 ft. bp 11 in. (149.86 cm); 12:30 BP 120 / 70; Pulse 87; Resp 18; Pulse Ox 100% on R/A; hj 13:24 BP 118 / 69; Pulse 85; Resp 18; Pulse Ox 99% on R/A; hj 14:59 BP 105 / 71; Pulse 77; Resp 18; Pulse Ox 100% on R/A; hj 17:15 BP 119 / 83; Pulse 75; Resp 18; Pulse Ox 100% on R/A; hj 11:18 Body Mass Index 22.22 (49.90 kg, 149.86 cm) bp ED Course: 11:14 Patient arrived in ED. mr 11:14 Maryjane Whitaker MD is Private Physician. mr 11:17 Triage completed. bp 11:18 Arm band placed on. bp 11:20 Patient has correct armband on for positive identification. Placed in gown. Bed in low hj position. Call light in reach. Side rails up X 1. Adult w/ patient. 11:33 Arnulfo Tyler RN is Primary Nurse. hj 11:37 Kareem Clark PA is PHCP. cp 11:37 Gasper Cardenas MD is Attending Physician. cp 12:00 Initial lab(s) drawn, by ED staff, sent to lab. Inserted saline lock: 22 gauge in left hj antecubital area, using aseptic technique. Blood collected. 12:17 US Abdomen Limited: epigastric/RUQ In Process Unspecified. EDMS 14:20 CT Abd/Pelvis - PO and IV Contrast In Process Unspecified. EDMS 15:34 First set of blood cultures drawn by me, by venipuncture 23G to right wrist. dh3 15:55 Second set of blood cultures drawn by me, by venipuncture 23G to right hand. dh3 15:55 lactate and procalcitonin drawn by EUFEMIA Arredondo. dh3 16:58 Blu Spencer MD is Referral Physician. cp 17:38 No provider procedures requiring assistance completed. IV discontinued, intact, hj bleeding controlled, No redness/swelling at site. Pressure dressing applied. Administered Medications: 12:02 Drug: NS 0.9% 1000 ml Route: IV; Rate: 1 bolus; Site: left antecubital; hj 13:20 Follow up: IV Status: Completed infusion; IV Intake: 1000ml hj 12:02 Drug: Pepcid 20 mg Route: IVP; Site: left antecubital; hj 13:20 Follow up: Response: No adverse reaction; Pain is decreased hj 12:03 Drug: Zofran 4 mg Route: IVP; Site: left antecubital; hj 13:21 Follow up: Response: No adverse reaction; Pain is decreased hj 12:03 Drug: fentaNYL (PF) 25 mcg Route: IVP; Site: left antecubital; hj 13:20 Follow up: Response: No adverse reaction; Pain is decreased hj 13:30 Drug: fentaNYL (PF) 25 mcg Route: IVP; Site: left antecubital; hj 13:43 Follow up: Response: No adverse reaction; Pain is decreased hj 16:01 Drug: metroNIDAZOLE 500 mg Volume: 100 ml; Route: IVPB; Infused Over: 30 mins; Site: hj left antecubital; 17:42 Follow up: IV Status: Completed infusion; IV Intake: 100ml hj 16:01 Drug: NS 0.9% 1000 ml Route: IV; Rate: 1 bolus; Site: left antecubital; hj 17:41 Follow up: IV Status: Completed infusion; IV Intake: 1000ml hj 16:26 Drug: Cipro 400 mg Volume: 200 ml; Route: IVPB; Infused Over: 60 mins; Site: left hj antecubital; 17:42 Follow up: IV Status: Completed infusion; IV Intake: 100ml hj 17:13 Drug: Zofran 4 mg Route: IVP; Site: left antecubital; hj 17:14 Follow up: Response: No adverse reaction; Nausea is decreased; Vomiting decreased hj Intake: 13:20 IV: 1000ml; Total: 1000ml. hj 17:41 IV: 1000ml; Total: 2000ml. hj 17:42 IV: 100ml; Total: 2100ml. hj 17:42 IV: 100ml; Total: 2200ml. Outcome: 16:59 Discharge ordered by MD. cp 17:39 Discharged to home ambulatory, with family. hj 17:39 Condition: stable 17:39 Discharge instructions given to patient, family, Instructed on discharge instructions, follow up and referral plans. medication usage, Demonstrated understanding of instructions, follow-up care, medications, Prescriptions given X 5 Rx; 17:42 Patient left the ED. Signatures: Dispatcher [employer] FAUZIA SabillonSharonaquinArnulfo RN RN Kareem Woodward PA PA cp Herrera, [facility] Ric Torres, RN RN bp
--- NOTE | 2019-01-21 17:00 | EDPHYS ---
Physician Documentation [facility] Name: Nidhi Solorzano Age: 48 yrs Sex: Female : 1970 Arrival Date: 01/21/2019 Time: 11:14 Bed 17 Private MD: Maryjane Whitaker ED Physician Gasper Cardenas HPI: 01/21 12:00 This 48 yrs old Female presents to ER via Wheelchair with complaints of Abdominal cp Pain. 12:00 The patient presents with abdominal pain in the upper abdomen. Onset: The cp symptoms/episode began/occurred this morning. Associated signs and symptoms: Pertinent positives: nausea, vomiting, Pertinent negatives: blood in stools, constipation, diarrhea. The symptoms are described as constant. Severity of pain: in the emergency department the pain is unchanged despite home interventions. The patient has experienced a previous episode, approximately 4 months ago, was seen and treated at [facility] ED. 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 - Social history:: Smoking status: unknown. - Ebola Screening: : No symptoms or risks identified at this time. ROS: 12:05 Constitutional: Negative for body aches, chills, fever, poor PO intake. cp 12:05 Eyes: Negative for injury, pain, redness, and discharge. cp 12:05 ENT: Negative for drainage from ear(s), ear pain, sore throat, difficulty swallowing, difficulty handling secretions. 12:05 Cardiovascular: Negative for chest pain, edema, palpitations. 12:05 Respiratory: Negative for cough, shortness of breath, wheezing. 12:05 Abdomen/GI: Positive for abdominal pain, nausea and vomiting, of the epigastric area and right upper quadrant, Negative for diarrhea, constipation, abdominal distension, hematemesis, black/tarry stool, rectal bleeding. 12:05 Back: Negative for radiated pain. 12:05 : Negative for urinary symptoms. 12:05 Neuro: Negative for altered mental status, dizziness, headache, weakness. 12:05 All other systems are negative. Exam: 12:10 Head/Face: Normocephalic, atraumatic. cp 12:10 Constitutional: The patient appears alert, awake, non-diaphoretic, non-toxic, well developed, well nourished, unkempt. 12:10 Eyes: Periorbital structures: appear normal, Conjunctiva: normal, no exudate, no injection, Sclera: no appreciated abnormality, Lids and lashes: appear normal, bilaterally. 12:10 ENT: External ear(s): are unremarkable, Nose: is normal, Mouth: Lips: moist, Oral mucosa: pink and intact, moist, Posterior pharynx: is normal, airway is patent, no erythema, no exudate. 12:10 Neck: External neck: is normal, ROM/movement: is normal, is supple, without pain, no range of motions limitations, no meningismus, no nuchal rigidity. 12:10 Chest/axilla: Inspection: normal, Palpation: is normal, no crepitus, no tenderness. 12:10 Cardiovascular: Rate: normal, Rhythm: regular. 12:10 Respiratory: the patient does not display signs of respiratory distress, Respirations: normal, no use of accessory muscles, no retractions, no splinting, no tachypnea, labored breathing, is not present, Breath sounds: are clear throughout, no decreased breath sounds, no rales, no wheezing. 12:10 Abdomen/GI: Inspection: abdomen appears normal, Bowel sounds: active, all quadrants, Palpation: soft, in all quadrants, severe abdominal tenderness, in the epigastric area and right upper quadrant, voluntary guarding, is elicited in all quadrants, is elicited in the epigastric area and right upper quadrant. 12:10 Back: pain, is absent, ROM is normal. 15:34 ECG was reviewed by the Attending Physician. cp Vital Signs: 11:18 BP 115 / 69; Pulse 88; Resp 16; Temp 97.4; Pulse Ox 99% ; Weight 49.9 kg; Height 4 ft. bp 11 in. (149.86 cm); 12:30 BP 120 / 70; Pulse 87; Resp 18; Pulse Ox 100% on R/A; hj 13:24 BP 118 / 69; Pulse 85; Resp 18; Pulse Ox 99% on R/A; hj 14:59 BP 105 / 71; Pulse 77; Resp 18; Pulse Ox 100% on R/A; hj 17:15 BP 119 / 83; Pulse 75; Resp 18; Pulse Ox 100% on R/A; hj 11:18 Body Mass Index 22.22 (49.90 kg, 149.86 cm) bp MDM: 11:39 Patient medically screened. cp 12:00 Differential diagnosis: appendicitis, bowel obstruction, cholecystitis, Cholelithiasis, cp diverticulitis, gastritis, pancreatitis, Peptic Ulcer Disease, Perf. Duodenal Ulcer, Perf. Gastric Ulcer, Pyelonephritis, Ureterolithiasis, urinary tract infection, colitis. 16:58 Data reviewed: vital signs, nurses notes, lab test result(s), EKG, radiologic studies, cp CT scan, ultrasound. 16:58 Test interpretation: by ED physician or midlevel provider: ECG. Response to treatment: cp the patient's symptoms have markedly improved after treatment. ED course: VSS. Pain and nausea improved and vomiting resolved. Will discharge to home for continued monitoring. 01/21 11:49 Order name: Basic Metabolic Panel; Complete Time: 12:32 cp 01/21 12:32 Interpretation: Normal except: GLUC 125. cp 01/21 11:49 Order name: CBC with Diff; Complete Time: 13:35 cp 01/21 13:39 Interpretation: Normal except: WBC 12.1; MCV 89.2; MPV 7.4; JI% 88.6; LYM% 8.1; MN% cp 3.1; NEUT A 10.7. 01/21 11:49 Order name: Creatinine for Radiology; Complete Time: 12:32 cp 01/21 11:49 Order name: Hepatic Function; Complete Time: 12:32 cp 01/21 12:32 Interpretation: Normal except: ALK 215; TP 8.8; GLOB 4.2. cp 01/21 11:49 Order name: Lipase; Complete Time: 12:32 cp 01/21 11:52 Order name: Magnesium; Complete Time: 12:32 cp 01/21 11:52 Order name: US Abdomen Limited: epigastric/RUQ; Complete Time: 12:32 cp 01/21 12:15 Order name: CBC Smear Scan; Complete Time: 13:35 EDMS 01/21 12:33 Order name: CT Abd/Pelvis - PO and IV Contrast; Complete Time: 14:44 cp 01/21 13:38 Order name: Urine Dipstick--Ancillary (enter results); Complete Time: 14:44 bd 01/21 14:44 Interpretation: Normal except: UESTR 1+. cp 01/21 13:38 Order name: Urine --Ancillary (enter results); Complete Time: 14:44 bd 01/21 15:08 Order name: Lactate; Complete Time: 16:52 cp 01/21 16:52 Interpretation: Reviewed. 01/21 15:08 Order name: Procalcitonin; Complete Time: 16:52 cp 01/21 16:52 Interpretation: Reviewed. 01/21 15:08 Order name: Blood Culture Adult (2) cp 01/21 11:49 Order name: IV Saline Lock; Complete Time: 12:03 cp 01/21 11:49 Order name: Labs collected and sent; Complete Time: 12:03 01/21 11:49 Order name: Urine Dipstick-Ancillary (obtain specimen); Complete Time: 13:44 cp 01/21 11:49 Order name: Urine Test (obtain specimen); Complete Time: 13:44 cp 01/21 15:08 Order name: EKG; Complete Time: 15:09 01/21 15:08 Order name: EKG - Nurse/Tech; Complete Time: 15:59 cp 01/21 16:53 Order name: PO challenge; Complete Time: 16:57 cp EC:34 Rate is 71 beats/min. Rhythm is regular. [place] interval is normal. QRS interval is normal. cp QT interval is normal. T waves are Inverted in lead V3. Interpreted by me. Reviewed by me. Administered Medications: 12:02 Drug: NS 0.9% 1000 ml Route: IV; Rate: 1 bolus; Site: left antecubital; hj 13:20 Follow up: IV Status: Completed infusion; IV Intake: 1000ml hj 12:02 Drug: Pepcid 20 mg Route: IVP; Site: left antecubital; hj 13:20 Follow up: Response: No adverse reaction; Pain is decreased hj 12:03 Drug: Zofran 4 mg Route: IVP; Site: left antecubital; hj 13:21 Follow up: Response: No adverse reaction; Pain is decreased hj 12:03 Drug: fentaNYL (PF) 25 mcg Route: IVP; Site: left antecubital; hj 13:20 Follow up: Response: No adverse reaction; Pain is decreased hj 13:30 Drug: fentaNYL (PF) 25 mcg Route: IVP; Site: left antecubital; hj 13:43 Follow up: Response: No adverse reaction; Pain is decreased hj 16:01 Drug: metroNIDAZOLE 500 mg Volume: 100 ml; Route: IVPB; Infused Over: 30 mins; Site: hj left antecubital; 17:42 Follow up: IV Status: Completed infusion; IV Intake: 100ml hj 16:01 Drug: NS 0.9% 1000 ml Route: IV; Rate: 1 bolus; Site: left antecubital; hj 17:41 Follow up: IV Status: Completed infusion; IV Intake: 1000ml hj 16:26 Drug: Cipro 400 mg Volume: 200 ml; Route: IVPB; Infused Over: 60 mins; Site: left hj antecubital; 17:42 Follow up: IV Status: Completed infusion; IV Intake: 100ml hj 17:13 Drug: Zofran 4 mg Route: IVP; Site: left antecubital; hj 17:14 Follow up: Response: No adverse reaction; Nausea is decreased; Vomiting decreased Disposition: 17:50 Co-signature as Attending Physician, Gasper Cardenas MD. rn Disposition: 01/21/19 16:59 Discharged to Home. Impression: Upper abdominal pain, unspecified - inflammation of ileum. - Condition is Stable. - Discharge Instructions: Abdominal Pain, Adult. - Prescriptions for Protonix 40 mg Oral Tablet - take 1 tablet by ORAL route once daily; 30 tablet. Zofran 4 mg Oral Tablet - take 1 tablet by ORAL route every 12 hours As needed; 20 tablet. Cipro 500 mg Oral Tablet - take 1 tablet by ORAL route every 12 hours for 10 days; 20 tablet. Metronidazole 500 mg Oral Tablet - take 1 tablet by ORAL route every 8 hours; 30 tablet. Tylenol- Codeine #3 300-30 mg Oral Tablet - take 2 tablets by ORAL route every 6 hours As needed; 15 tablet. - Medication Reconciliation Form, Thank You Letter, Antibiotic Education, Prescription Opioid Use form. - Follow up: Blu Spencer MD; When: 2 - 3 days; Reason: Recheck today's complaints. - Problem is new. - Symptoms have improved. Signatures: Dispatcher [employer] EDGasper Wadsworth MD MD rn Joaquin, Henry, RN RN hj Page, Corey, PA PA cp Peltier, Brian, RN RN bp Corrections: (The following items were deleted from the chart) 17:42 16:59 01/21/2019 16:59 Discharged to Home. Impression: Upper abdominal pain, hj unspecified - inflammation of ileum. Condition is Stable. Forms are Medication Reconciliation Form, Thank You Letter, Antibiotic Education, Prescription Opioid Use. Follow up: Blu Spencer; When: 2 - 3 days; Reason: Recheck today's complaints. Problem is new. Symptoms have improved. cp
--- NOTE | 2019-01-21 22:22 | EKG ---
Test Date: 2019-01-21 Test Time: 15:28:58 Pattern Clerk: AMEE MEASUREMENT RESULTS: Intervals: Rate: 71 MT: 150 QRSD: 72 QT: 388 QTc: 421 [place]: P: 46 MT: 150 QRS: 76 T: 53 INTERPRETIVE STATEMENTS: Normal sinus rhythm Nonspecific T wave abnormality Abnormal ECG Compared to ECG 10/02/2018 14:23:39 T-wave abnormality now present Sinus tachycardia no longer present Electronically Signed On 01-21-19 22:22:22 CDT by Jaun Vivar
== END 2019-01-21 17:42 | disposition home or self-care (01) ==
LOC: ER 11:10
DX: R10.10 Upper abdominal pain, unspecified (principal)
CPT/HCPCS: 36415; 74177; 76705; 80048; 80076; 81003; 81025; 83605; 83690; 83735; 84145; 85025; 87040; 93005; 96361; 96365; 96375; 99284; J0744; J2405; J3010; J7030; Q9967

== ENCOUNTER 2022-12-28 09:45 | Emergency (ER) | payer OTHER ==
--- OUTSIDE RECORDS SUMMARY | 2022-12-28 09:58 | XMS REPORT | Continuity of Care Document ---
:1970 Author Organization [facility] t Address [address] [place] [address] [address] [place] [address] Care Team Providers Name Role Phone Jessica Merino Attending Clinician Unavailable Maryjane WEBB Attending Clinician Unavailable SINDHU RAPP Attending Clinician Unavailable MELO JUÁREZ Attending Clinician Unavailable 1, [facility] Attending Clinician Unavailable Melo Juárez MD Attending Clinician Doctor Unassigned, [place] Attending Clinician Unavailable Payers Payer Name Policy Type Policy Number Effective Date Expiration Date Critical access hospital [id number] 2018 CHOICE 00:00:00 Problems Condition Condition Condition Status Onset Resolution Last Treating Co mments Source Name Details Category Date Date Treatment Clinician Date [id number] History of Problem Co mmon thyroiditi [facility] s - [facility] [id number] Primary Problem Comm on osteoarthr Spirit itis of - CHI left knee [facility] [id number] Osteonecro Problem Co mmon sis Spirit - [facility] Osteoarthr Osteoarthr Problem C ommon itis of itis of Spirit knee knee, - [facility]I unspecifie [facility] laterality Medica l , Center unspecifie d osteoarthr itis type [id number] Low Problem Common vitamin D Spirit level [facility] [id number] Gastroesop Problem Co mmon hageal Spirit reflux - [facility]I disease [facility] esophagiti Medica s Center [id number] Primary Problem Comm on osteoarthr Spirit itis of - [facility]I right knee [facility] Blood Low TSH Problem Common chemistry level Spirit abnormal [facility] [id number] Hyperthyro Problem Com mon idism Spirit [facility] [id number] Epigastric Problem Com mon abdominal Spirit pain - [facility] Thyroiditi Thyroiditi Problem C ommon s s Spirit [facility] [id number] Thyroid Problem Commo n nodule [facility] [id number] Combined Problem Comm on hyperlipid [facility] emia [facility] [id number] Pure Problem Common hyperchole [facility] sterolemia [facility] [id number] Carpal Problem Commo n tunnel Spirit syndrome - CHI of left [facility] [id number] Graves' Problem Commo n disease [facility] [id number] Carpal Problem Common tunnel Spirit syndrome - [facility] of right [facility] Hydronephr Hydronephr Problem C ommon osis osis [facility] [id number] Vitamin D Problem Comm on deficiency [facility] [id number] Adult Problem Common general Spirit medical - [facility] exam [facility] [id number] Gastroesop Problem Co mmon hageal [facility] reflux - [facility] Medical esophagiti Center s present [id number] Allergic Problem Commo n rhinitis, [facility] unspecifie - [facility] d St seasonalit [facility] y, Medical unspecifie Center d trigger Allergies, Adverse Reactions, Alerts Allergy Allergy Status Severity Reaction(s) Onset Inactive Treating Comm ents Source Name Type Date Date Clinician NO KNOWN Drug Active Univers ALLERGIE Class ity of [facility] Branch Social History Social Habit Start Date Stop Date Quantity Comments Source History of Tobacco Use Co mmon [facility] Sex Assigned At Com mon [facility] Smoking Status Start Date Stop Date Source Never Smoker Common [facility] Medications Ordered Filled Start Stop Current Ordering Indication Dosage Frequency Signature Comments Components Source Medication Medication Date Date Medication? Clinician (SIG) Name Name methylPREDN methylPREDN No methylPRED ISolone 4 ISolone 4 1-17 NISolone 4 MG MG 00:00: MG 00 Meloxicam Meloxicam 2022-0 3- No 1{table QD Meloxicam 7.5 MG 7.5 MG 17 -16 t} 7.5 MG 00:00: 00:00 00 :00 Naropin Naropin 2021-0 No 5mg Common (Ropivacain (Ropivacain 8-25 S pirit e HCl) e HCl) 00:00: - CHI 00 [facility] Kenalog Kenalog 2021-0 No 40mg Common (Triamcinol (Triamcinol 8-25 S pirit one) one) 00:00: - CHI 00 [facility] Naropin Naropin 2021-0 No 5mg Common (Ropivacain (Ropivacain 8-25 S pirit e HCl) e HCl) 00:00: - CHI 00 [facility] Kenalog Kenalog 2021-0 No 40mg Common (Triamcinol (Triamcinol 8-25 S pirit one) one) 00:00: - CHI 00 [facility] Naropin Naropin 2021-0 No 5mg Common (Ropivacain (Ropivacain 8-25 S pirit e HCl) e HCl) 00:00: - CHI 00 [facility] Kenalog Kenalog 2021-0 No 40mg Common (Triamcinol (Triamcinol 8-25 S pirit one) one) 00:00: - CHI 00 [facility] Naropin Naropin 2-0 No 5mg Common (Ropivacain (Ropivacain 8-25 S pirit e HCl) e HCl) 00:00: - CHI 00 [facility] Kenalog Kenalog 2021-0 No 40mg Common (Triamcinol (Triamcinol 8-25 S pirit one) one) 00:00: - CHI 00 [facility] Naropin Naropin 2-0 No 5mg Common (Ropivacain (Ropivacain 8-25 S pirit e HCl) e HCl) 00:00: - CHI 00 [facility] Kenalog Kenalog 2021-0 No 40mg Common (Triamcinol (Triamcinol 8-25 S pirit one) one) 00:00: - CHI 00 [facility] Naropin Naropin 2-0 No 5mg Common (Ropivacain (Ropivacain 8-25 S pirit e HCl) e HCl) 00:00: - CHI 00 [facility] Kenalog Kenalog 2021-0 No 40mg Common (Triamcinol (Triamcinol 8-25 S pirit one) one) 00:00: - CHI 00 [facility] Naropin Naropin 2021-0 No 5mg Common (Ropivacain (Ropivacain 8-25 S pirit e HCl) e HCl) 00:00: - CHI 00 [facility] Kenalog Kenalog 2021-0 No 40mg Common (Triamcinol (Triamcinol 8-25 S pirit one) one) 00:00: - CHI 00 [facility] Naropin Naropin 2-0 No 5mg Common (Ropivacain (Ropivacain 8-25 S pirit e HCl) e HCl) 00:00: - CHI 00 [facility] Kenalog Kenalog 2021-0 No 40mg Common (Triamcinol (Triamcinol 8-25 S pirit one) one) 00:00: - CHI 00 [facility] Naropin Naropin 2-0 No 5mg Common (Ropivacain (Ropivacain 8-25 S pirit e HCl) e HCl) 00:00: - CHI 00 [facility] Kenalog Kenalog 2021-0 No 40mg Common (Triamcinol (Triamcinol 8-25 S pirit one) one) 00:00: - CHI 00 [facility] Naropin Naropin 2-0 No 5mg Common (Ropivacain (Ropivacain 8-25 S pirit e HCl) e HCl) 00:00: - CHI 00 [facility] Kenalog Kenalog 2021-0 No 40mg Common (Triamcinol (Triamcinol 8-25 S pirit one) one) 00:00: - CHI 00 [facility] Naropin Naropin 2022-0 No 5mg Common (Ropivacain (Ropivacain 8-25 S pirit e HCl) e HCl) 00:00: - CHI 00 [facility] Gabriela Dialloalog 2021-0 No 40mg Common (Triamcinol (Triamcinol 8-25 S pirit one) one) 00:00: - CHI 00 [facility] Naropin Naropin 2021-0 No 5mg Common (Ropivacain (Ropivacain 8-25 S pirit e HCl) e HCl) 00:00: - CHI 00 [facility] Gabriela Dialloalog 2021-0 No 40mg Common (Triamcinol (Triamcinol 8-25 S pirit one) one) 00:00: - CHI 00 [facility] Naropin Naropin 2021-0 No 5mg Common (Ropivacain (Ropivacain 8-25 S pirit e HCl) e HCl) 00:00: - CHI 00 [facility] Gabriela Ochoa 0 No 40mg Common (Triamcinol (Triamcinol 8-25 S pirit one) one) 00:00: - CHI 00 [facility] Mobic 7.5 Mobic 7.5 2021-0 2021- No 1{table QD Mobic 7.5 MG MG 8-25 09-24 t} MG 00:00: 00:00 00 :00 Omeprazole Omeprazole 2021-0 No 1{capsu QD Omeprazole 40 MG 40 MG 5-23 le} 40 MG 00:00: 00 Flonase 50 Flonase 50 2020-0 No 2{spray QD Flonase 50 MCG/ACT MCG/ACT 8-23 _in_eac MCG/ACT 00:00: h_nostr 00 il} Flonase 50 Flonase 50 2020-0 No 2{spray QD Flonase 50 MCG/ACT MCG/ACT 8-23 _in_eac MCG/ACT 00:00: h_nostr 00 [place]} Flonase 50 Flonase 50 2020-0 No 2{spray QD Flonase 50 MCG/ACT MCG/ACT 8-23 _in_eac MCG/ACT 00:00: h_nostr 00 [place]} Flonase 50 Flonase 50 2020-0 No 2{spray QD Flonase 50 MCG/ACT MCG/ACT 8-23 _in_eac MCG/ACT 00:00: h_nostr 00 [place]} Flonase 50 Flonase 50 2020-0 No 2{spray QD Flonase 50 MCG/ACT MCG/ACT 8-23 _in_eac MCG/ACT 00:00: h_nostr 00 [place]} Flonase 50 Flonase 50 2020-0 No 2{spray QD Flonase 50 MCG/ACT MCG/ACT 8-23 _in_eac MCG/ACT 00:00: h_nostr 00 [place]} Flonase 50 Flonase 50 2020-0 No 2{spray QD Flonase 50 MCG/ACT MCG/ACT 8-23 _in_eac MCG/ACT 00:00: h_nostr 00 [place]} Flonase 50 Flonase 50 2020-0 No 2{spray QD Flonase 50 MCG/ACT MCG/ACT 8-23 _in_eac MCG/ACT 00:00: h_nostr 00 [place]} Flonase 50 Flonase 50 2020-0 No 2{spray QD Flonase 50 MCG/ACT MCG/ACT 8-23 _in_eac MCG/ACT 00:00: h_nostr 00 [place]} Flonase 50 Flonase 50 2020-0 No 2{spray QD Flonase 50 MCG/ACT MCG/ACT 8-23 _in_eac MCG/ACT 00:00: h_nostr 00 [place]} Flonase 50 Flonase 50 2020-0 No 2{spray QD Flonase 50 MCG/ACT MCG/ACT 8-23 _in_eac MCG/ACT 00:00: h_nostr 00 [place]} Flonase 50 Flonase 50 2020-0 No 2{spray QD Flonase 50 MCG/ACT MCG/ACT 8-23 _in_eac MCG/ACT 00:00: h_nostr 00 [place]} Flonase 50 Flonase 50 1-0 No 2{spray QD Flonase 50 MCG/ACT MCG/ACT 8-23 _in_eac MCG/ACT 00:00: h_nostr 00 [place]} Flonase 50 Flonase 50 2020-0 No 2{spray QD Flonase 50 MCG/ACT MCG/ACT 8-23 _in_eac MCG/ACT 00:00: h_nostr 00 [place]} Flonase 50 Flonase 50 2020-0 No 2{spray QD Flonase 50 MCG/ACT MCG/ACT 8-23 _in_eac MCG/ACT 00:00: h_nostr 00 [place]} Flonase 50 Flonase 50 1-0 No 2{spray QD Flonase 50 MCG/ACT MCG/ACT 8-23 _in_eac MCG/ACT 00:00: h_nostr 00 [place]} ciprofloxac 2019-0 Yes Univer s in HCl 500 6-17 ity of mg tablet 00:00: [place] 00 [facility] metroNIDAZO 2019-0 Yes Univer s LE 500 mg 6-17 ity of tablet 00:00: [place] [facility] ondansetron 2019-0 Yes Univer s 4 mg tablet 6-17 ity of 00:00: [place] [facility] pantoprazol 2019-0 Yes Univer s e 40 mg EC 6-17 ity of tablet 00:00: [place] [facility] acetaminoph 2019-0 Yes Univer s en-codeine 6-17 ity of 300-30 mg 00:00: [place] tablet 00 Medical Branch ciprofloxac 2019-0 Yes Univer s in HCl 500 6-17 ity of mg tablet 00:00: [place] [facility] metroNIDAZO 2019-0 Yes Univer s LE 500 mg 6-17 ity of tablet 00:00: [place] [facility] ondansetron 2019-0 Yes Univer s 4 mg tablet 6-17 ity of 00:00: [place] [facility] pantoprazol 2019-0 Yes Univer s e 40 mg EC 6-17 ity of tablet 00:00: [place] [facility] acetaminoph 2019-0 Yes Univer s en-codeine 6-17 ity of 300-30 mg 00:00: [place] tablet 00 Medical Branch ciprofloxac 2019-0 Yes Univer s in HCl 500 6-17 ity of mg tablet 00:00: [place] [facility] metroNIDAZO 2019-0 Yes Univer s LE 500 mg 6-17 ity of tablet 00:00: [place] 00 [facility] ondansetron 2019-0 Yes Univer s 4 mg tablet 6-17 ity of 00:00: [place] 00 [facility] pantoprazol 2019-0 Yes Univer s e 40 mg EC 6-17 ity of tablet 00:00: [place] 00 [facility] acetaminoph Yes Univer s en-codeine 6-17 ity of 300-30 mg 00:00: [place] tablet 00 Medical Branch ciprofloxac Yes Univer s in HCl 500 6-17 ity of mg tablet 00:00: [place] 00 [facility] metroNIDAZO Yes Univer s LE 500 mg 6-17 ity of tablet 00:00: [place] 00 [facility] ondansetron Yes Univer s 4 mg tablet 6-17 ity of 00:00: [place] 00 [facility] pantoprazol Yes Univer s e 40 mg EC 6-17 ity of tablet 00:00: [place] 00 [facility] acetaminoph Yes Univer s en-codeine 6-17 ity of 300-30 mg 00:00: [place] tablet 00 Medical Branch methIMAzole Yes [id number] 10mg Take 1 Univers 10 mg 3-08 tablet by ity of tablet 00:00: mouth 2 [place] 00 (two) Medical times Branch daily. methIMAzole Yes [id number] 10mg Take 1 Univers 10 mg 3-08 tablet by ity of tablet 00:00: mouth 2 [place] 00 ([facility]) Medical times Branch daily. methIMAzole 2019- No [id number] 10mg Take 1 Univers 10 mg 3-08 09-17 tablet by ity of tablet 00:00: 00:00 mouth 2 [place] 00 :00 ([facility]) Medical times Branch daily. methIMAzole 2019- No [id number] 10mg Take 1 Univers 10 mg 3-08 09-17 tablet by ity of tablet 00:00: 00:00 mouth 2 [place] 00 :00 ([facility]) Medical times [place] daily. Propranolol Propranolol Yes Daniel 1 tablet Common HCl HCl Ubtler on an Spirit empty - CHI stomach [facility] Cipro Cipro Yes Daniel 1 tablet Common [facility] Flagyl Flagyl Yes Daniel 1 tablet Comm on [facility] Protonix Protonix Yes Daniel 1 tablet Common [facility] Methimazole Methimazole Yes Daniel TK 1 T PO Common [place] BID [facility] - [facility] Methimazole Methimazole Yes Daniel 1 tablet Common [place] with food [facility] Meloxicam Meloxicam No 1{table QD Meloxicam 7.5 MG 7.5 MG t} 7.5 MG Flagyl 500 Flagyl 500 No 1{table TID Flagyl 500 MG MG t} MG methIMAzole methIMAzole No methIMAzol 10 MG 10 MG e 10 MG Cipro 500 Cipro 500 No 1{table BID Cipro 500 MG MG t} MG Omeprazole Omeprazole No Omeprazole 40 MG 40 MG 40 MG Cipro 500 Cipro 500 No 1{table BID Cipro 500 MG MG t} MG Protonix 40 Protonix 40 No 1{table QD Protonix MG MG t} 40 MG Flagyl 500 Flagyl 500 No 1{table TID Flagyl 500 MG MG t} MG methIMAzole methIMAzole No methIMAzol 10 MG 10 MG e 10 MG Cipro 500 Cipro 500 No 1{table BID Cipro 500 MG MG t} MG Protonix 40 Protonix 40 No 1{table QD Protonix MG MG t} 40 MG Flagyl 500 Flagyl 500 No 1{table TID Flagyl 500 MG MG t} MG methIMAzole methIMAzole No methIMAzol 10 MG 10 MG e 10 MG Protonix 40 Protonix 40 No 1{table QD Protonix MG MG t} 40 MG Flagyl 500 Flagyl 500 No 1{table TID Flagyl 500 MG MG t} MG methIMAzole methIMAzole No methIMAzol 10 MG 10 MG e 10 MG Cipro 500 Cipro 500 No 1{table BID Cipro 500 MG MG t} MG Omeprazole Omeprazole No QD Omeprazole 40 MG 40 MG 40 MG Flagyl 500 Flagyl 500 No 1{table TID Flagyl 500 MG MG t} MG Cipro 500 Cipro 500 No 1{table BID Cipro 500 MG MG t} MG Omeprazole Omeprazole No Omeprazole 40 MG 40 MG 40 MG Protonix 40 Protonix 40 No 1{table QD Protonix MG MG t} 40 MG methIMAzole methIMAzole No methIMAzol 10 MG 10 MG e 10 MG methIMAzole methIMAzole No methIMAzol 10 MG 10 MG e 10 MG Protonix 40 Protonix 40 No 1{table QD Protonix MG MG t} 40 MG Meloxicam Meloxicam No 1{table QD Meloxicam 7.5 MG 7.5 MG t} 7.5 MG Cipro 500 Cipro 500 No 1{table BID Cipro 500 MG MG t} MG Omeprazole Omeprazole No Omeprazole 40 MG 40 MG 40 MG Flagyl 500 Flagyl 500 No 1{table TID Flagyl 500 MG MG t} MG Protonix 40 Protonix 40 No 1{table QD Protonix MG MG t} 40 MG Meloxicam Meloxicam No 1{table QD Meloxicam 7.5 MG 7.5 MG t} 7.5 MG Flagyl 500 Flagyl 500 No 1{table TID Flagyl 500 MG MG t} MG methIMAzole methIMAzole No methIMAzol 10 MG 10 MG e 10 MG Cipro 500 Cipro 500 No 1{table BID Cipro 500 MG MG t} MG Omeprazole Omeprazole No Omeprazole 40 MG 40 MG 40 MG Protonix 40 Protonix 40 No 1{table QD Protonix MG MG t} 40 MG Meloxicam Meloxicam No 1{table QD Meloxicam 7.5 MG 7.5 MG t} 7.5 MG Flagyl 500 Flagyl 500 No 1{table TID Flagyl 500 MG MG t} MG methIMAzole methIMAzole No methIMAzol 10 MG 10 MG e 10 MG Cipro 500 Cipro 500 No 1{table BID Cipro 500 MG MG t} MG Omeprazole Omeprazole No Omeprazole 40 MG 40 MG 40 MG Protonix 40 Protonix 40 No 1{table QD Protonix MG MG t} 40 MG Meloxicam Meloxicam No 1{table QD Meloxicam 7.5 MG 7.5 MG t} 7.5 MG Flagyl 500 Flagyl 500 No 1{table TID Flagyl 500 MG MG t} MG methIMAzole methIMAzole No methIMAzol 10 MG 10 MG e 10 MG Cipro 500 Cipro 500 No 1{table BID Cipro 500 MG MG t} MG Omeprazole Omeprazole No Omeprazole 40 MG 40 MG 40 MG methIMAzole methIMAzole No methIMAzol 10 MG 10 MG e 10 MG Omeprazole Omeprazole No Omeprazole 40 MG 40 MG 40 MG Protonix 40 Protonix 40 No 1{table QD Protonix MG MG t} 40 MG Cipro 500 Cipro 500 No 1{table BID Cipro 500 MG MG t} MG Flagyl 500 Flagyl 500 No 1{table TID Flagyl 500 MG MG t} MG methIMAzole methIMAzole No methIMAzol 10 MG 10 MG e 10 MG Protonix 40 Protonix 40 No 1{table QD Protonix MG MG t} 40 MG Meloxicam Meloxicam No Meloxicam 7.5 MG 7.5 MG 7.5 MG Cipro 500 Cipro 500 No 1{table BID Cipro 500 MG MG t} MG Flagyl 500 Flagyl 500 No 1{table TID Flagyl 500 MG MG t} MG Omeprazole Omeprazole No Omeprazole 40 MG 40 MG 40 MG methIMAzole methIMAzole No methIMAzol 10 MG 10 MG e 10 MG Protonix 40 Protonix 40 No 1{table QD Protonix MG MG t} 40 MG Meloxicam Meloxicam No Meloxicam 7.5 MG 7.5 MG 7.5 MG Cipro 500 Cipro 500 No 1{table BID Cipro 500 MG MG t} MG Flagyl 500 Flagyl 500 No 1{table TID Flagyl 500 MG MG t} MG Omeprazole Omeprazole No Omeprazole 40 MG 40 MG 40 MG methIMAzole methIMAzole No methIMAzol 10 MG 10 MG e 10 MG Meloxicam Meloxicam No Meloxicam 7.5 MG 7.5 MG 7.5 MG Flagyl 500 Flagyl 500 No 1{table TID Flagyl 500 MG MG t} MG Omeprazole Omeprazole No Omeprazole 40 MG 40 MG 40 MG Cipro 500 Cipro 500 No 1{table BID Cipro 500 MG MG t} MG Protonix 40 Protonix 40 No 1{table QD Protonix MG MG t} 40 MG methIMAzole methIMAzole No methIMAzol 10 MG 10 MG e 10 MG Protonix 40 Protonix 40 No 1{table QD Protonix MG MG t} 40 MG Meloxicam Meloxicam No 1{table QD Meloxicam 7.5 MG 7.5 MG t} 7.5 MG Cipro 500 Cipro 500 No 1{table BID Cipro 500 MG MG t} MG Omeprazole Omeprazole No Omeprazole 40 MG 40 MG 40 MG Flagyl 500 Flagyl 500 No 1{table TID Flagyl 500 MG MG t} MG Protonix 40 Protonix 40 No 1{table QD Protonix MG MG t} 40 MG Meloxicam Meloxicam No 1{table QD Meloxicam 7.5 MG 7.5 MG t} 7.5 MG Flagyl 500 Flagyl 500 No 1{table TID Flagyl 500 MG MG t} MG methIMAzole methIMAzole No methIMAzol 10 MG 10 MG e 10 MG Cipro 500 Cipro 500 No 1{table BID Cipro 500 MG MG t} MG Omeprazole Omeprazole No Omeprazole 40 MG 40 MG 40 MG Protonix 40 Protonix 40 No 1{table QD Protonix MG MG t} 40 MG Meloxicam Meloxicam No 1{table QD Meloxicam 7.5 MG 7.5 MG t} 7.5 MG Flagyl 500 Flagyl 500 No 1{table TID Flagyl 500 MG MG t} MG methIMAzole methIMAzole No methIMAzol 10 MG 10 MG e 10 MG Cipro 500 Cipro 500 No 1{table BID Cipro 500 MG MG t} MG Omeprazole Omeprazole No Omeprazole 40 MG 40 MG 40 MG Protonix 40 Protonix 40 No 1{table QD Protonix MG MG t} 40 MG Vital Signs Vital Name Observation Time Observation Value Comments Source height 2022-08-23 08:00:00 59.00 [in_i] [facility] weight 2022-08-23 08:00:00 124 [lb_av] [facility] temperature 2022-08-23 08:00:00 98.2 [degF] [facility] bmi 2022-08-23 08:00:00 25.04 kg/m2 [facility] blood pressure 2022-08-23 08:00:00 122 mm[Hg] [facility] - systolic [facility] blood pressure 2022-08-23 08:00:00 74 mm[Hg] [facility] - diastolic [facility] height 2022-05-26 10:15:00 59.00 [in_i] [facility] weight 2022-05-26 10:15:00 123.7 [lb_av] [facility] temperature 2022-05-26 10:15:00 97.7 [degF] Common S pirit - [facility]I [facility] bmi 2022-05-26 10:15:00 24.98 kg/m2 Common S pirit - [facility]I [facility] blood pressure 2022-05-26 10:15:00 122 mm[Hg] [facility] - systolic [facility] blood pressure 2022-05-26 10:15:00 76 mm[Hg] [facility] - diastolic [facility] height 2022-05-02 10:00:00 59.00 [in_i] Common S pirit - [facility] weight 2022-05-02 10:00:00 122.0 [lb_av] [facility] - [facility] temperature 2022-05-02 10:00:00 97.7 [degF] Common S pirit - [facility] bmi 2022-05-02 10:00:00 24.64 kg/m2 Common S pirit - [facility] blood pressure 2022-05-02 10:00:00 120 mm[Hg] [facility] - systolic [facility] blood pressure 2022-05-02 10:00:00 80 mm[Hg] [facility] - diastolic [facility] height 2022-03-31 08:30:00 59.00 [in_i] Common S pirit - [facility] weight 2022-03-31 08:30:00 124.5 [lb_av] [facility] - [facility] temperature 2022-03-31 08:30:00 97.3 [degF] Common S pirit - [facility] bmi 2022-03-31 08:30:00 25.14 kg/m2 Common S pirit - [facility] blood pressure 2022-03-31 08:30:00 120 mm[Hg] [facility] - systolic [facility] blood pressure 2022-03-31 08:30:00 78 mm[Hg] [facility] - diastolic [facility] height 2021-12-27 08:20:00 59.00 [in_i] Common S pirit - [facility] weight 2021-12-27 08:20:00 122.2 [lb_av] [facility] temperature 2021-12-27 08:20:00 97.6 [degF] Common [facility] bmi 2021-12-27 08:20:00 24.68 kg/m2 [facility] oximetry 2021-12-27 08:20:00 98 % [facility] respiratory rate 2021-12-27 08:20:00 16 /min Comm on [facility] blood pressure 2021-12-27 08:20:00 98 mm[Hg] Common [facility] - systolic [facility] blood pressure 2021-12-27 08:20:00 67 mm[Hg] [facility] diastolic [facility] height 2021-09-28 10:00:00 59.00 [in_i] [facility] weight 2021-09-28 10:00:00 120.0 [lb_av] [facility] temperature 2021-09-28 10:00:00 95.9 [degF] Common [facility] bmi 2021-09-28 10:00:00 24.23 kg/m2 [facility] oximetry 2021-09-28 10:00:00 98 % [facility] respiratory rate 2021-09-28 10:00:00 16 /min Comm on [facility] blood pressure 2021-09-28 10:00:00 127 mm[Hg] Common [facility] systolic [facility] blood pressure 2021-09-28 10:00:00 71 mm[Hg] Common [facility] diastolic [facility] Systolic blood 2019-04-23 21:01:00 125 mm[Hg] [facility]iver [facility] Diastolic blood 2019-04-23 21:01:00 85 mm[Hg] Unive rsity of [facility] Heart rate 2019-04-23 21:01:00 85 /min [facility]i [facility] Respiratory rate 2019-04-23 21:01:00 16 /min [facility] height 2019-04-23 21:01:00 149.9 cm [facility] [place] [facility] [place] Body weight 2019-04-23 21:01:00 52.617 kg [facility] [place] [facility] BMI 2019-04-23 21:01:00 23.43 kg/m2 Universi ty [facility] Systolic blood 2019-04-23 21:01:00 125 mm[Hg] Univer sity of pressure [facility] Diastolic blood 2019-04-23 21:01:00 85 mm[Hg] Unive rsity [facility] Heart rate 2019-04-23 21:01:00 85 /min Universi ty [facility] Respiratory rate 2019-04-23 21:01:00 16 /min [facility] height 2019-04-23 21:01:00 149.9 cm Universi ty [facility] Body weight 2019-04-23 21:01:00 52.617 kg Universi [facility] BMI 2019-04-23 21:01:00 23.43 kg/m2 Universi [facility] Procedures Procedure Date / Time Performed Performing Clinician Sour e CONSENT/REFUSAL FOR 2019-04-23 21:43:51 Doctor Unassigned, No [facility] DIAGNOSIS AND Name Medical Branch TREATMENT ASSIGNMENT OF BENEFITS 2019-04-23 21:43:35 Doctor Unassigned, No [facility] Medical Branch Encounters Start End Encounter Admission Attending Care Care Encounter Source Date/Time Date/Time Type Type Clinicians Facility Department ID 2022-12-14 Outpatient Merino, STLMLC STLC [id number] Common 08:27:00 Jessica [id number] [facility] 2022-12-12 Outpatient Merino, STLMLC STLMLC [id number] Common 10:10:00 Jessica [id number] [facility] 2022-10-24 Outpatient Merino, STLMLC STLMLC [id number] Common 11:41:00 Jessica [id number] [facility] 2022-10-11 Outpatient Merino, STLMLC STLMLC [id number] Common 14:39:00 Jessica [id number] [facility] 2022-08-23 Outpatient WEBB, Na STLMLC STLMLC [id number] Common 08:04:00 [id number] [facility] 2022-05-03 Outpatient Webb, Na STLMLC STLMLC [id number] Common 08:59:00 [facility] 2022-05-02 Outpatient Webb, Na STLMLC STLMLC [id number] Common 14:36:00 [facility] 2022-04-26 Outpatient Webb, Na STLMLC STLMLC [id number] Common 10:01:00 [facility] 2022-03-31 Outpatient Webb, Na STLMLC STLMLC [id number] Common 09:22:00 [facility] 2022-03-25 Outpatient Webb, Na STLMLC STLMLC [id number] Common 08:30:00 [facility] 2022-03-03 Outpatient Webb, Na STLMLC STLMLC [id number] 2 Common 14:39:00 [facility] 2021-12-23 Outpatient Webb, Na STLMLC STLMLC [id number] Common 07:55:00 [facility] 2021-09-01 Outpatient Webb, Na STLMLC STLMLC [id number] 2 Common 13:41:11 [id number] [facility] 2021-09-01 Outpatient Webb, Na STLMLC STLMLC [id number] 2 Common 12:25:16 [id number] [facility] 2021-09-01 Outpatient Webb, Na STLMLC STLMLC [id number] 2 Common 12:24:08 [id number] [facility] 2022-08-23 2022-08-23 OFFICE STLMLC STLMLC [id number] Co mmon 00:00:00 00:00:00 VISIT [facility] 4 [facility] 2022-08-19 2022-08-19 (TEL) STLMLC STLMLC [id number] Co mmon 00:00:00 00:00:00 [facility] 2022-06-13 2022-06-13 (TEL) STLMLC STLMLC [id number] Co mmon 00:00:00 00:00:00 [facility] 2022-05-26 2022-05-26 OFFICE STLMLC STLMLC [id number] Co mmon 00:00:00 00:00:00 VISIT [facility] ESTAB PT - CHI LEVEL 4 [facility] 2022-05-11 2022-05-11 (TEL) STLMLC STLMLC [id number] Co mmon 00:00:00 00:00:00 [facility] 2022-05-04 2022-05-04 OL DIG E/M STLMLC STLMLC [id number] Common 00:00:00 00:00:00 [facility] [place]ir it MIN [facility] 2022-05-04 2022-05-04 (TEL) STLMLC STLMLC [id number] Co mmon 00:00:00 00:00:00 [facility] 2022-05-02 2022-05-02 OFFICE STLMLC STLMLC [id number] Co mmon 00:00:00 00:00:00 VISIT [facility] PT - CHI LEVEL 4 [facility] 2022-03-31 2022-03-31 OFFICE STLMLC STLMLC [id number] Co mmon 00:00:00 00:00:00 VISIT [facility] PT - CHI LEVEL 4 [facility] 2021-12-27 2021-12-27 OFFICE STLMLC STLMLC [id number] Co mmon 00:00:00 00:00:00 VISIT EST Spir it PT LEVEL 3 - [facility] 2021-12-09 2021-12-09 (TEL) STLMLC STLMLC [id number] Co mmon 00:00:00 00:00:00 [facility] 2021-09-28 2021-09-28 OFFICE STLMLC STLMLC [id number] Co mmon 00:00:00 00:00:00 VISIT EST Spir it PT LEVEL 3 - [facility] 2021-03-29 2021-03-29 Outpatient STLMLC STLMLC [id number] Common 00:00:00 00:00:00 [facility] 2021-03-29 2021-03-29 Outpatient STLMLC STLMLC [id number] Common 00:00:00 00:00:00 [facility] 2020-11-13 2020-11-13 Outpatient Manav TAMELA [facility] [id number] Univers 10:20:00 10:20:00 [facility] 2020-10-23 2020-10-23 Outpatient Manav TAMELA, [facility] [id number] Univers 10:20:00 10:20:00 [facility] 2020-09-14 2020-09-14 Outpatient STLMLC STLMLC [id number] Common 00:00:00 00:00:00 [facility] 2020-08-28 2020-08-28 Outpatient STLMLC STLMLC [id number] Common 00:00:00 00:00:00 [facility] 2020-03-01 2020-03-01 [facility] [id number] Common 21:13:00 21:13:00 [facility] Drive [facility] 2020-02-12 2020-02-12 [facility] [id number] Common 17:22:00 17:22:00 [facility] 2020-01-22 2020-01-22 Outpatient Manav JUÁREZ [facility] [id number] Univers 15:30:00 15:30:00 MELO [facility] 2019-04-23 2019-04-23 Ocean Fishing Guide 1, Adc Lab [facility] [id number] Univers 16:45:45 17:00:45 Visit Melo Juárez [id number] lily Abi [id number] [facility] [phone] [address] 2019-04-23 2019-04-23 Office Franck [facility] [id number] Univers 15:48:54 16:25:14 Visit Melo Billings [id number] i [id number] [phone] Wi dical [facility] [address] [facility] 2019-04-23 2019-04-23 Office Juárez, DASHAWN [id number] 15:48:54 16:25:14 Visit Melo Billings [id number] [place] [id number] Professio [phone] [facility] 220 [facility] 2019-04-23 2019-04-23 Orders Doctor ALEJANDRO [id number] Univers 00:00:00 00:00:00 Only Unassigned, DREW [id number] [facility] [id number] Gaudencio as [phone] [address] 2019-03-18 2019-03-18 [facility] [id number] Common 10:00:00 10:00:00 [facility] 2019-02-14 2019-02-14 [facility] [id number] Common 10:00:00 10:00:00 t [facility] 2019-02-04 2019-02-04 [facility] [id number] Common 14:10:00 14:10:00 [address] [facility] 2019-01-30 2019-01-30 [facility] [id number] Common 08:39:00 08:39:00 t [facility] 2019-01-29 2019-01-29 [facility] [id number] Common 09:40:00 09:40:00 [address] [facility] 2019-01-16 2019-01-16 [facility] [id number] Common 16:26:00 16:26:00 [address] Family [facility] 2019-01-10 2019-01-10 [facility] [id number] Common 09:00:00 09:00:00 t [facility] Bone [facility] Spiri t and Joint [facility] 2018-12-11 2018-12-11 [facility] [id number] Common 15:48:00 15:48:00 [address] [facility] 2018-11-23 2018-11-23 [facility] [id number] Common 07:42:00 07:42:00 t [facility] Bone [facility] Sp[facility] t and Joint [facility] 2018-11-22 2018-11-22 [facility] [id number] Common 09:30:00 09:30:00 t [facility] Bone [facility] Spiri t and Joint [facility] 2018-10-30 2018-10-30 [facility] [id number] Common 09:15:00 09:15:00 [address] [facility] 2018-10-23 2018-10-23 [facility] [id number] Common 04:25:00 04:25:00 [address] [facility] 2018-10-15 2018-10-15 [facility] [id number] Common 15:08:00 15:08:00 [address] [facility] 2018-10-08 2018-10-08 [facility] [id number] Common 13:26:00 13:26:00 [address] [facility] 2018-10-03 2018-10-03 [facility] [id number] Common 15:29:00 15:29:00 [address] [facility] 2018-10-02 2018-10-02 [facility] [id number] Common 12:30:00 12:30:00 [address] [facility] 2018-05-03 2018-05-03 [facility] [id number] Common 14:18:00 14:18:00 t Bone Bone and Spiri t and Joint [facility] - [facility] 2018-05-02 2018-05-02 [facility] [id number] Common 11:19:00 11:19:00 t Bone Bone and Spiri t and Joint [facility] 2018-04-23 2018-04-23 [facility] [id number] Common 11:00:00 11:00:00 t Bone Bone and Spiri t and Joint Joint - [facility] 2018-04-16 2018-04-16 [facility] [id number] Common 09:45:00 09:45:00 t Bone Bone and Spiri t and Joint Joint - [facility] 2018-04-12 2018-04-12 [facility] [id number] Common 13:29:00 13:29:00 t [facility] Bone and Spiri t and Joint Joint - [facility] 2018-04-06 2018-04-06 [facility] [id number] Common 09:00:00 09:00:00 t [facility] Sp[facility] t [facility] Joint [facility] - [facility] 2018-01-04 2018-01-04 [facility] [id number] Common 09:45:00 09:45:00 [address] [facility] 2017-12-27 2017-12-27 [facility] [id number] Common 13:50:00 13:50:00 [address] [facility] 2017-12-05 2017-12-05 [facility] [id number] Common 14:45:00 14:45:00 [address] [facility] Results This patient has no known results.
[2022-12-28] MEDS ORDERED: ADENOSINE 6 MG/ 2ML VIAL IV ONE (10:09)
[2022-12-28] MEDS ORDERED: NA CHLORIDE 0.9% 1,000 ML ONE ×2 (10:09→11:50)
[2022-12-28 10:11] LABS: Hematocrit 40.5 % (36.0-45.0); Lymphocytes % 55.1 % (15.3-44.8); MCV 92.1 fL (80-100)
[2022-12-28 10:27] LABS: Potassium 3.4 mEq/L (3.5-5.1); Troponin High Sensitivity 4.5 pg/mL (<58.9)
--- NOTE | 2022-12-28 10:44 | RAD REPORT ---
EXAM DESCRIPTION: Nelson Single View12/28/2022 10:15 am CLINICAL HISTORY: Chest pain COMPARISON: none FINDINGS: The lungs appear clear of acute infiltrate. The heart is mildly enlarged IMPRESSION: No acute abnormalities displayed
--- NOTE | 2022-12-28 13:40 | ER ---
Nurse's Notes [facility] Name: Nidhi Solorzano Age: 52 yrs Sex: Female : 1970 Arrival Date: 12/28/2022 Time: 09:45 Bed 5 Private MD: Diagnosis: Supraventricular tachycardia Presentation: 12/28 09:49 Chief complaint: Patient states: left sided chest pain started 30 minutes ago. iw Coronavirus screen: At this time, the client does not indicate any symptoms associated with coronavirus-19. Ebola Screen: Patient negative for fever greater than or equal to 101.5 degrees Fahrenheit, and additional compatible Ebola Virus Disease symptoms Patient denies exposure to infectious person. Patient denies travel to an Ebola-affected area in the 21 days before illness onset. No symptoms or risks identified at this time. Initial Sepsis Screen: Does the patient meet any 2 criteria? No. Patient's initial sepsis screen is negative. Does the patient have a suspected source of infection? No. Patient's initial sepsis screen is negative. Risk Assessment: Do you want to hurt yourself or someone else? Patient reports no desire to harm self or others. Onset of symptoms was December 28, 2022. 09:49 Method Of Arrival: Wheelchair iw 09:49 Acuity: ESTEFANIA 2 iw Triage Assessment: 10:00 General: Appears distressed, Behavior is cooperative, appropriate for age, anxious. bp Pain: Complains of pain in chest. EENT: No deficits noted. Neuro: No deficits noted. Cardiovascular: Rhythm is SVT. Respiratory: No deficits noted. GI: No signs and/or symptoms were reported involving the gastrointestinal system. : No signs and/or symptoms were reported regarding the genitourinary system. Derm: No deficits noted. Musculoskeletal: No deficits noted. Historical: - Allergies: 09:49 No Known Allergies; iw - Home Meds: 09:49 None [Active]; iw - PMHx: 09:49 None; iw - PSHx: :49 section; iw - Immunization history:: Adult Immunizations up to date. - Social history:: Smoking status: Patient denies any tobacco usage or history of. Screenin:05 [facility] ED Fall Risk Assessment (Adult) History of falling in the last 3 months, kc6 including since admission No falls in past 3 months (0 pts) Confusion or Disorientation No (0 pts) Intoxicated or Sedated No (0 pts) Impaired Gait No (0 pts) Mobility Assist Device Used No (0 pt) Altered Elimination No (0 pt) Score/Fall Risk Level 0 - 2 = Low Risk Oriented to surroundings, Maintained a safe environment, Educated pt \T\ family on fall prevention, incl call for assistance when getting out of bed, Assessed \T\ reinforced patient's understanding of fall precautions, Hourly rounding (assess needs \T\ fall precautionary measures) done. Abuse screen: Denies threats or abuse. Denies injuries from another. Nutritional screening: No deficits noted. Tuberculosis screening: No symptoms or risk factors identified. Assessment: 10:00 Reassessment: PT PLACED ON DEFIB PADS WITH MONITORING AND CONTINUOUS SPO2 AND EKG, bp INFORMED OF RISKS/BENEFITS OF ADENOCARD. 10:00 Cardiovascular: Rhythm is SVT. bp 10:10 Reassessment: SINUS TACH NOTED ON MONITOR AFTER MEDICATION. PT TOLERATED WELL. bp 11:05 Reassessment: Patient appears in no apparent distress at this time. Patient and/or [facility] family updated on plan of care and expected duration. Pain level reassessed. Patient is alert, oriented x 3, equal unlabored respirations, skin warm/dry/pink. 12:05 Reassessment: Patient appears in no apparent distress at this time. No changes from [facility] previously documented assessment. Patient and/or family updated on plan of care and expected duration. Pain level reassessed. Patient is alert, oriented x 3, equal unlabored respirations, skin warm/dry/pink. Patient states feeling better. Patient states symptoms have improved. 13:05 Reassessment: Patient appears in no apparent distress at this time. No changes from [facility] previously documented assessment. Patient and/or family updated on plan of care and expected duration. Pain level reassessed. Patient is alert, oriented x 3, equal unlabored respirations, skin warm/dry/pink. 14:03 Reassessment: No changes from previously documented assessment. Patient is alert, bp oriented x 3, equal unlabored respirations, skin warm/dry/pink. Vital Signs: 11:06 BP 124 / 96; Pulse 114; Resp 21; Pulse Ox 98% on R/A; kc6 12:06 BP 120 / 89; Pulse 112; Resp 16 S; Pulse Ox 96% on R/A; kc6 12:26 BP 122 / 90; Pulse 114; Resp 16; Pulse Ox 96% ; bp 13:06 BP 116 / 94; Pulse 103; Resp 16 S; Pulse Ox 96% on R/A; kc6 14:02 BP 120 / 86; Pulse 97; Resp 18; Pulse Ox 96% ; bp ED Course: 09:46 Patient arrived in ED. rg4 09:47 Yovani Mckeon MD is Attending Physician. bs3 09:48 Ric Torres RN is Primary Nurse. bp 09:49 Triage completed. iw 09:50 Arm band placed on. iw 09:50 Patient has correct armband on for positive identification. Placed in gown. Bed in low kc6 position. Call light in reach. Side rails up X2. Adult w/ patient. 09:50 Client placed on continuous cardiac and pulse oximetry monitoring. NIBP monitoring kc6 applied. monitor technician on. 09:50 Patient maintains SpO2 saturation greater than 95% on room air. kc6 10:00 Inserted saline lock: 18 gauge in left antecubital area, using aseptic technique. Blood bp collected. 10:17 XRAY Chest (1 view) In Process Unspecified. EDMS 13:39 Kumar Claudio MD is Referral Physician. bs3 14:13 No provider procedures requiring assistance completed. IV discontinued, intact, bp bleeding controlled, No redness/swelling at site. Pressure dressing applied. Administered Medications: 10:00 Drug: Adenocard IVP 12 mg Route: IVP; Site: left antecubital; bp 11:34 Follow up: Response: Marked relief of symptoms bp 11:30 Drug: NS 0.9% IV 1000 ml Route: IV; Rate: 100 ml/hr; Site: left antecubital; bp 14:10 Follow up: Response: No adverse reaction; IV Status: Completed infusion; IV Intake: kc6 1000ml Intake: 14:10 IV: 1000ml; Total: 1000ml. kc6 Outcome: 13:40 Discharge ordered by . bs3 14:13 Discharged to home ambulatory, with family. bp 14:13 Condition: stable 14:13 Discharge instructions given to patient, family, Instructed on discharge instructions, follow up and referral plans. Demonstrated understanding of instructions, follow-up care. 14:20 Patient left the ED. bp Signatures: Dispatcher [employer] EDWY Lucille Johns RN RN Mirtha Jasso rg4 Ric Torres, RN RN bp Jory Velarde, RN RN kc6 Yovani Mckeon MD MD bs3
--- NOTE | 2022-12-28 13:41 | EDPHYS ---
Physician Documentation [facility] Name: Nidhi Solorzano Age: 52 yrs Sex: Female : 1970 Arrival Date: 12/28/2022 Time: 09:45 Bed 5 Private MD: ED Physician Yovani Mckeon HPI: 12/28 09:59 This 52 yrs old Female presents to ER via Wheelchair with complaints of Chest bs3 Pain. 09:59 52yo f presents with chest palpitations sob that started just prior to arrival, never bs3 had it before, nothing makes it better or worse. Denies any associated symptoms. . Historical: - Allergies: 09:49 No Known Allergies; iw - Home Meds: 09:49 None [Active]; iw - PMHx: 09:49 None; iw - PSHx: 09:49 section; iw - Immunization history:: Adult Immunizations up to date. - Social history:: Smoking status: Patient denies any tobacco usage or history of. ROS: 09:59 Constitutional: Negative for fever, chills Eyes: Negative for injury, pain, redness, bs3 and discharge. 09:59 All other systems are negative. Exam: 09:59 Constitutional: This is a well developed, well nourished patient who is awake, alert, bs3 and in no acute distress. Head/Face: Normocephalic, atraumatic. Eyes: Pupils equal round and reactive to light, extra-ocular motions intact. Lids and lashes normal. ENT: mmm, no posterior phyarngeal erythema Neck: Trachea midline, no thyromegaly, no neck stiffness Chest/axilla: Normal chest wall appearance and motion. Nontender with no deformity. No lesions are appreciated. Cardiovascular: tachycardic, regular. Respiratory: Tachypneic clear lungs MS/ Extremity: Pulses equal, no cyanosis. Neurovascular intact. Full, normal range of motion. Neuro: Awake and alert, GCS 15, oriented to person, place, time, and situation. Cranial nerves II-XII grossly intact. Motor strength 5/5 in all extremities. Sensory grossly intact. Psych: Awake, alert, with orientation to person, place and time. Behavior, mood, and affect are within normal limits. 09:[address] changes which are nonspecific, qtc normal as inter by myself. Vital Signs: 11:06 BP 124 / 96; Pulse 114; Resp 21; Pulse Ox 98% on R/A; kc6 12:06 BP 120 / 89; Pulse 112; Resp 16 S; Pulse Ox 96% on R/A; kc6 12:26 BP 122 / 90; Pulse 114; Resp 16; Pulse Ox 96% ; bp 13:06 BP 116 / 94; Pulse 103; Resp 16 S; Pulse Ox 96% on R/A; kc6 14:02 BP 120 / 86; Pulse 97; Resp 18; Pulse Ox 96% ; bp MDM: 09:47 Patient medically screened. bs3 09:59 Data reviewed: vital signs, nurses notes. ED course: Patient with new onset SVT I bs3 attempted modified vagal maneuver without success we then used adenosine 12 mg with improvement in her heart rate she tolerated without complication. 13:39 ED course: Labs negative for acute pathology heart rate continued to improve over time bs3 patient feeling better advised outpatient cardiology and EP follow-up return precautions given. 16:45 ED course: Repeat EKG sinus tachycardia [address] elevations or depressions QTc 449 as bs3 interpreted by myself at 1025. 12/28 09:48 Order name: Basic Metabolic Panel; Complete Time: 11:14 3 12/28 09:48 Order name: CBC with Diff; Complete Time: 11:14 3 12/28 09:48 Order name: Troponin HS; Complete Time: 11:14 bs3 12/28 11:41 Order name: TSH; Complete Time: 16:45 bs3 12/28 09:48 Order name: XRAY Chest (1 view); Complete Time: 11:14 3 12/28 09:48 Order name: EKG; Complete Time: 09:48 bs3 12/28 09:48 Order name: EKG - Nurse/Tech; Complete Time: 10:02 3 12/28 09:48 Order name: Cardiac monitoring; Complete Time: 10:02 3 12/28 09:48 Order name: IV Saline Lock; Complete Time: 10:02 bs3 12/28 09:48 Order name: Labs collected and sent; Complete Time: 10:02 3 12/28 09:48 Order name: O2 Per Protocol; Complete Time: 10: 3 12/28 09:48 Order name: O2 Sat Monitoring; Complete Time: 10:02 bs3 Administered Medications: 10:00 Drug: Adenocard IVP 12 mg Route: IVP; Site: left antecubital; bp 11:34 Follow up: Response: Marked relief of symptoms bp 11:30 Drug: NS 0.9% IV 1000 ml Route: IV; Rate: 100 ml/hr; Site: left antecubital; bp 14:10 Follow up: Response: No adverse reaction; IV Status: Completed infusion; IV Intake: kc6 1000ml Disposition: 13:39 Critical Care:. bs3 Disposition Summary: 12/28/22 13:40 Discharge Ordered Location: Home bs3 Problem: new bs3 Symptoms: have improved bs3 Condition: Stable bs3 Diagnosis - Supraventricular tachycardia bs3 Followup: bs3 - With: Kumar Claudio MD - When: 5 - 6 days - Reason: Re-evaluation by your physician Discharge Instructions: - Discharge Summary Sheet bs3 - Supraventricular Tachycardia, Adult, [id number] bs3 Forms: - Medication Reconciliation Form bs3 - Thank You Letter bs3 - Antibiotic Education bs3 - Prescription Opioid Use bs3 Critical care time excluding procedures: 13:39 Critical care time: Bedside Care: 35 minutes. Total time: 35 minutes bs3 Signatures: Dispatcher [employer] Lucille Mina RN RN iw Peltier, Brian, RN RN Yovani Cardona MD MD bs3 Jory Velarde RN kc6
[2022-12-28 14:56] VITALS: O2SAT 96
[2022-12-28 15:01] VITALS: BP 120/86
--- NOTE | 2022-12-29 05:35 | EKG ---
Test Date: 2022-12-28 Test Time: 09:53:43 Cut Press Operator: AMANDA MEASUREMENT RESULTS: Intervals: Rate: 214 SC: QRSD: 66 QT: 202 QTc: 381 [place]: P: SC: QRS: 85 T: -47 INTERPRETIVE STATEMENTS: Supraventricular tachycardia Marked ST abnormality, possible inferior subendocardial injury Abnormal ECG Compared to ECG 01/21/2019 15:28:58 ST (T wave) deviation now present Sinus rhythm no longer present T-wave abnormality no longer present Electronically Signed On 12-29-22 05:33:34 CDT by Skyler Yuan
--- NOTE | 2022-12-29 12:33 | EKG ---
Test Date: 2022-12-28 Test Time: 10:05:17 Constitutional Law Professor: AMANDA MEASUREMENT RESULTS: Intervals: Rate: 152 DE: QRSD: 60 QT: 324 QTc: 515 [place]: P: DE: QRS: 85 T: 8 INTERPRETIVE STATEMENTS: Supraventricular tachycardia ST & T wave abnormality, consider inferior ischemia Abnormal ECG Compared to ECG 12/28/2022 09:54:29 Possible ischemia now present ST (T wave) deviation still present Electronically Signed On 12-29-22 12:31:53 CDT by Skyler Yuan
--- NOTE | 2022-12-29 12:33 | EKG ---
Test Date: 2022-12-28 Test Time: 10:25:28 Diesel Engine I Pipe Fitter: AMANDA MEASUREMENT RESULTS: Intervals: Rate: 117 AL: 158 QRSD: 62 QT: 322 QTc: 449 [place]: P: 73 AL: 158 QRS: 83 T: 43 INTERPRETIVE STATEMENTS: Sinus tachycardia Otherwise normal ECG Compared to ECG 12/28/2022 10:05:17 Supraventricular tachycardia no longer present ST (T wave) deviation no longer present Possible ischemia no longer present Electronically Signed On 12-29-22 12:31:52 CDT by Skyler Yuan
--- NOTE | 2022-12-29 12:34 | EKG ---
Test Date: 2022-12-28 Test Time: 09:54:29 Consultative Sales Associate: AMANDA MEASUREMENT RESULTS: Intervals: Rate: 210 VT: QRSD: 64 QT: 202 QTc: 377 [place]: P: VT: QRS: 84 T: 19 INTERPRETIVE STATEMENTS: Supraventricular tachycardia Marked ST abnormality, possible inferior subendocardial injury Abnormal ECG Compared to ECG 12/28/2022 09:53:43 No significant changes Electronically Signed On 12-29-22 12:31:54 CDT by Skyler Yuan
== END 2022-12-28 14:20 | disposition home or self-care (01) ==
LOC: ER 09:45
DX: I47.1 Supraventricular tachycardia (principal)
CPT/HCPCS: 85025; 80048; 36415; 84443; 84484; 71045; J0153; J7030 ×2; 93005